=== PATIENT | male | born 1955 | race Caucasian/White ===

== ENCOUNTER 2020-01-09 11:58 | Inpatient (IN) | payer MEDICARE, MEDICAID ==
--- NOTE | 2020-01-09 12:02 | EDM.PDOC ---
ED HPI GENERAL MEDICAL PROBLEM - General Chief Complaint: General Stated Complaint: seizure Time Seen by Provider: 01/09/20 11:58 Source of Information: Reports: Patient, [facility] Records, Old Records ([facility] chart/EMR) History Limitations: Reports: Altered Mental Status - History of Present Illness INITIAL COMMENTS - FREE TEXT/NARRATIVE: The patient was brought to the emergency room via ambulance with reference investigator accompaniment with saline lock placed and patient started on O2 at 2 L/m by nasal cannula secondary to some hypoxia on room air after their initial evaluation. The patient is an extremely poor historian secondary to his chronic mental deficiency from his previous head injury as below. 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 At about 10:55 AM this morning the patient experienced a grand mal seizure lasting for about 1-1/2 minutes with one additional seizure thereafter and some postictal sedation, which did persist at time of arrival of the paramedics, however has improved at time of arrival to the emergency room. No other treatment or medications by either the nursing staff at the [facility] or the paramedics prior to arrival. No apparent recent fall, injury, anginal complaints, recent fever, cough, or other known recent illnesses. Limited history obtained from the [facility]. Onset: Today, Sudden Onset Date: 01/09/20 Onset Time: 10:55 Duration: Intermittent, Resolved Prior to Arrival Location: Reports: Other (No pain) Quality: Reports: Same as Previous Episode Severity: Moderate Improves with: Reports: None Worsens with: Reports: None Context: Reports: Other (As above). Denies: Sick Contact, Trauma Associated Symptoms: Reports: Seizure, Weakness (Stable quadriplegia). Denies: Confusion, Chest Pain, Cough, Fever/Chills, Headaches, Loss of Appetite, Nausea/ Vomiting, Shortness of Breath, Syncope Treatments [employer] OFFICER: Reports: IV/IO, Oxygen - Related Data Allergies Allergy/AdvReac Type Severity Reaction Status Date / Time No Known Allergies Allergy Verified 01/09/20 12:03 Home Meds: Home Meds Chlorhexidine Gluconate [Peridex] 15 ml MM BID 02/19/18 [History] Folic Acid 400 mcg PO DAILY 02/19/18 [History] Multivit with Calcium,Iron,Min [Essential Daily] 1 tab PO DAILY 02/19/18 [ History] Sennosides/Docusate Sodium [Senna Plus Tablet] 1 tab PO BID 02/19/18 [History] Simvastatin [Zocor] 40 mg PO BEDTIME 02/19/18 [History] Tolterodine Tartrate [Detrol LA] 4 mg PO DAILY 02/19/18 [History] bisacodyL [Dulcolax] 10 mg RC Q72H 02/19/18 [History] carBAMazepine [Tegretol] 400 mg PO BID 02/19/18 [History] polyethylene glycoL 3350 [MiraLAX] 17 gm PO Q48H 02/19/18 [History] Acetaminophen [Tylenol] 650 mg PO Q4H PRN 01/09/20 [History] Psyllium Husk [Metamucil] 0.4 gm PO TID 01/09/20 [History] Past Medical History Cardiovascular History: Reports: Arrhythmia, High Cholesterol, Other (See Below) . Denies: CAD, [place] Other Cardiovascular History: Mixed hyperlipidemia. Incomplete right bundle branch block. Respiratory History: Reports: Bronchitis, Recurrent, COPD, Pneumonia, Recurrent , Pulmonary Fibrosis, Other (See Below) Other Respiratory History: Aspiration pneumoniarecurrent? Gastrointestinal History: Reports: Chronic Constipation, Other (See Below) Other Gastrointestinal History: Dysphagia secondary to head injury Genitourinary History: Reports: Retention, Urinary, Urinary Incontinence Musculoskeletal History: Reports: Arthritis, Osteoarthritis Neurological History: Reports: Head Trauma, Seizure, Other (See Below) Other Neuro History: History of head injury associated with secondary grand mal / complex partial seizure disorder, frontal lobe encephalomalacia, mild hydrocephalus and cerebral atrophy by CT scan with chronic mental deficits and hyperplasia. C-spine injury. Endocrine/Metabolic History: Reports: Other (See Below) Other Endocrine/Metabolic History: Hyperglycemia. - Past Imaging History Past Imaging History: Reports: CAT Scan (CT scan of the head on 02/19/18, 09/2015 and 11/17/04.) Social & Family History - Family History Family Medical History: Unobtainable - Living Situation & Occupation Living situation: Reports: Extended Care Facility ED ROS GENERAL - Review of Systems Review Of Systems: Comprehensive ROS is negative, except as noted in HPI. ED EXAM, GENERAL - Physical Exam Exam: See Below Exam Limited By: Altered Mental Status General Appearance: Alert, WD/WN, No Apparent Distress, Other (Resolved/ improved postictal sedation on arrival) Eye Exam: Bilateral Eye: EOMI, Normal Fundi, Normal Inspection (No nystagmus), PERRL Ears: Normal External Exam, Normal Canal (Moderate cerumen in the EACs right greater than left), Hearing Grossly Normal, Normal TMs Nose: Normal Inspection, Normal Mucosa, No Blood Throat/Mouth: Normal Inspection, Normal Lips, Normal Teeth (Multiple missing teeth), Normal Gums, Normal Oropharynx, Normal Voice, No Airway Compromise. No : Dysphagia Head: Atraumatic, Normocephalic. No: Facial Swelling, Facial Tenderness, Sinus Tenderness Neck: Normal Inspection, Supple, Non-Tender, Full Range of Motion. No: Carotid Bruit, Lymphadenopathy (L), Lymphadenopathy (R), Thyromegaly Respiratory/Chest: No Respiratory Distress, No Accessory Muscle Use, Chest Non- Tender, Rales (Mild diffuse bilateral). No: Rhonchi, Wheezing, Pleural Rub, Retractions Cardiovascular: Normal Peripheral Pulses, No Edema, No Gallop, No JVD, No Rub, Tachycardia (Regular rhythm), Systolic Murmur (1/6 SHNEG of the aortic and mitral valves). No: Gallop/S3, Gallop/S4, Friction Rub Peripheral Pulses: 2+: Radial (L), Radial (R), Dorsalis Pedis (L), Dorsalis Pedis (R) GI/Abdominal: Normal Bowel Sounds, Soft, Non-Tender, No Organomegaly, No Distention, No Abnormal Bruit, No Mass, Pelvis Stable (Male) Exam: Deferred Rectal (Males) Exam: Deferred Back Exam: Normal Inspection, Full Range of Motion. No: CVA Tenderness (L), CVA Tenderness (R), Muscle Spasm Extremities: Non-Tender, No Pedal Edema, Normal Capillary Refill, Limited Range of Motion (Secondary to quadriplegia). No: Bettie's Sign Neurological: Alert, Sensory/Motor Deficit (Stable quadriplegia with left sided Babinski's). No: Oriented (Return to baseline mental status with patient mostly nonverbal) Psychiatric: Normal Affect, Normal Mood Skin Exam: No: Diaphoretic, Ecchymosis, Petechiae, Wound/Incision Lymphatic: No Adenopathy EKG INTERPRETATION EKG Date: 01/09/20 Time: 12:19 Rhythm: Other (Sinus tachycardia) Rate (Beats/Min): 117 [place]: Normal P-Wave: Present (Mild diffuse biphasic P waves with pulmonary hypertension by EKG) QRS: Wide (0.10 seconds representing an incomplete right bundle branch block) ST-T: Other (T-wave inversion in leads 3 and aVF with nonspecific ST changes in lead 2 and 6 possible inferior wall ischemia) QT: Normal VA/PQ Interval: 0.13 seconds short VA interval Comparison: NA - No Prior EKG (Stable inferior wall cardiac ischemia since last EKG on 06/15/13) EKG Interpretation Comments: 1. Inferior wall cardiac ischemia-? Stable 2. Sinus tachycardia 3. Short VA interval 4. Incomplete right bundle branch block Course - Vital Signs Last Recorded V/S: Last Vital Signs Temp 36.4 C 01/09/20 11:59 Pulse 115 H 01/09/20 12:36 Resp 18 01/09/20 14:00 BP 125/72 01/09/20 14:00 Pulse Ox 98 01/09/20 14:00 Vital Signs - 24 hr 01/09/20 01/09/20 01/09/20 11:59 12:00 12:30 Temperature [ 36.4 C Oral] Pulse, Peripheral Pulse, 127 H Peripheral [ Right Pulse Oximetry] Respiratory 20 Rate Blood Pressure Blood Pressure 137/71 119/66 [Right Upper Arm] O2 Sat by Pulse 87 L 93 L Oximetry O2 Sat by Pulse 96 Oximetry [ Nasal Cannula] 01/09/20 01/09/20 01/09/20 12:36 12:45 13:00 Temperature [ Oral] Pulse, 115 H Peripheral Pulse, Peripheral [ Right Pulse Oximetry] Respiratory 20 12 Rate Blood Pressure 119/66 Blood Pressure 120/69 114/67 [Right Upper Arm] O2 Sat by Pulse 96 96 Oximetry O2 Sat by Pulse Oximetry [ Nasal Cannula] 01/09/20 01/09/20 01/09/20 13:15 13:30 13:45 Temperature [ Oral] Pulse, Peripheral Pulse, Peripheral [ Right Pulse Oximetry] Respiratory 19 18 18 Rate Blood Pressure Blood Pressure 127/68 117/69 121/72 [Right Upper Arm] O2 Sat by Pulse 97 96 98 Oximetry O2 Sat by Pulse Oximetry [ Nasal Cannula] 01/09/20 14:00 Temperature [ Oral] Pulse, Peripheral Pulse, Peripheral [ Right Pulse Oximetry] Respiratory 18 Rate Blood Pressure Blood Pressure 125/72 [Right Upper Arm] O2 Sat by Pulse 98 Oximetry O2 Sat by Pulse Oximetry [ Nasal Cannula] - Orders/Labs/Meds Orders: Active Orders 24 hr Category Date Time Status Cardiac Monitoring [RC] . DIRECTED Care 01/09/20 12:05 Active EKG Documentation Completion [RC] ASDIRECTED Care 01/09/20 12:05 Active Oxygen Therapy, ED [RC] CONTINUOUS Care 01/09/20 12:05 Active Peripheral IV Care [RC] . DIRECTED Care 01/09/20 12:05 Active Pulse Oximetry [RC] CONTINUOUS Care 01/09/20 12:05 Active Up With Assistance [RC] PFP Care 01/09/20 12:05 Active Vital Signs [RC] PFP Care 01/09/20 12:05 Active Nothing per Oral Now Diet [DIET] Diet 01/09/20 Breakfast Active Chest 1V Frontal [CR] Stat Exams 01/09/20 12:05 Taken CARBAMAZEPINE [REF] Stat Lab 01/09/20 12:35 Received Sodium Chloride 0.9% [Saline Flush] Med 01/09/20 12:05 Active 10 ml FLUSH ASDIRECTED PRN Obtain Past Medical Record [OM.PC] Urgent Oth 01/09/20 12:05 Active Peripheral IV Insertion Adult [OM.PC] Stat Oth 01/09/20 12:05 Ordered Resuscitation Status Stat Resus Stat 01/09/20 12:05 Ordered Medication Orders Sodium Chloride (Saline Flush) 10 ml FLUSH ASDIRECTED PRN PRN Reason: Keep Vein Open Last Admin: 01/09/20 12:46 Dose: 10 ml Admin: 01/09/20 12:37 Dose: 10 ml Labs: Laboratory Tests 01/09/20 01/09/20 01/09/20 Range/Units 12:30 12:35 12:35 WBC 11.7 H (4.0-10.2) K/uL RBC 4.30 L (4.33-5.41) M/uL Hgb 13.6 (13.1-16.8) g/dL Hct 42.2 (39.0-49.0) % MCV 98.1 H (84.0-98.0) fL MCH 31.6 (28.2-33.3) pg MCHC 32.2 (31.7-36.0) g/dL RDW 12.9 (11.2-14.1) % Plt Count 273 (150-350) K/uL Neut % (Auto) 77.0 (45.0-80.0) % Lymph % (Auto) 10.6 (10.0-50.0) % [place] % (Auto) 11.8 (2.0-14.0) % Eos % (Auto) 0.4 (0.0-5.0) % Baso % (Auto) 0.2 (0.0-2.0) % Neut # (Auto) 9.03 H (1.40-7.00) K/uL Lymph # (Auto) 1.25 (0.50-3.50) K/uL [place] # (Auto) 1.39 H (0.00-1.00) K/uL Eos # (Auto) 0.05 (0.00-0.50) K/uL Baso # (Auto) 0.02 (0.00-0.20) K/uL PT 9.3 L (9.5-12.0) SEC INR 0.9 APTT 24.4 L (24.5-32.8) SEC D-Dimer, Quantitative 349 (0-400) ng/mL Sodium (136-145) mmol/L Potassium (3.5-5.1) mmol/L Chloride (98-107) mmol/L Carbon Dioxide (21.0-32.0) mmol/L BUN (7-18) mg/dL Creatinine (0.51-1.17) mg/dL Est Cr Clr Drug Dosing mL/min Estimated GFR (MDRD) mL/min Glucose (74-106) mg/dL Lactic Acid (0.4-2.0) mmol/L Uric Acid (2.6-7.2) mg/dL Calcium (8.5-10.1) mg/dL Magnesium (1.8-2.4) mg/dL Total Bilirubin (0.2-1.0) mg/dL AST (15-37) U/L ALT (12-78) U/L Alkaline Phosphatase (46-116) IU/L Creatine Kinase (26-308) U/L Creatine Kinase Index (0.0-2.5) % CK-MB (CK-2) (0.00-3.60) ng/mL Troponin I (0.000-0.056) ng/mL NT-Pro-B Natriuret Pep (0-125) pg/mL Total Protein (6.4-8.2) g/dL Albumin (3.4-5.0) g/dL TSH, Ultra Sensitive (0.358-3.740) mIU/mL 01/09/20 01/09/20 Range/Units 12:35 12:35 WBC (4.0-10.2) K/uL RBC (4.33-5.41) M/uL Hgb (13.1-16.8) g/dL Hct (39.0-49.0) % MCV (84.0-98.0) fL MCH (28.2-33.3) pg MCHC (31.7-36.0) g/dL RDW (11.2-14.1) % Plt Count (150-350) K/uL Neut % (Auto) (45.0-80.0) % Lymph % (Auto) (10.0-50.0) % [place] % (Auto) (2.0-14.0) % Eos % (Auto) (0.0-5.0) % Baso % (Auto) (0.0-2.0) % Neut # (Auto) (1.40-7.00) K/uL Lymph # (Auto) (0.50-3.50) K/uL [place] # (Auto) (0.00-1.00) K/uL Eos # (Auto) (0.00-0.50) K/uL Baso # (Auto) (0.00-0.20) K/uL PT (9.5-12.0) SEC INR APTT (24.5-32.8) SEC D-Dimer, Quantitative (0-400) ng/mL Sodium 148 H (136-145) mmol/L Potassium 3.9 (3.5-5.1) mmol/L Chloride 109 H (98-107) mmol/L Carbon Dioxide 26.5 (21.0-32.0) mmol/L BUN 11 (7-18) mg/dL Creatinine 0.72 (0.51-1.17) mg/dL Est Cr Clr Drug Dosing 93.53 mL/min Estimated GFR (MDRD) > 60 mL/min Glucose 118 H (74-106) mg/dL Lactic Acid 7.8 H (0.4-2.0) mmol/L Uric Acid 9.2 H (2.6-7.2) mg/dL Calcium 9.5 (8.5-10.1) mg/dL Magnesium 2.3 (1.8-2.4) mg/dL Total Bilirubin 0.2 (0.2-1.0) mg/dL AST 15 (15-37) U/L ALT 25 (12-78) U/L Alkaline Phosphatase 127 H (46-116) IU/L Creatine Kinase 286 (26-308) U/L Creatine Kinase Index 0.5 (0.0-2.5) % CK-MB (CK-2) 1.30 (0.00-3.60) ng/mL Troponin I 0.012 (0.000-0.056) ng/mL NT-Pro-B Natriuret Pep 37 (0-125) pg/mL Total Protein 7.8 (6.4-8.2) g/dL Albumin 3.6 (3.4-5.0) g/dL TSH, Ultra Sensitive 2.958 (0.358-3.740) mIU/mL Meds: Medications Generic Name Dose Route Start Last Admin Trade Name Freq PRN Reason Stop Dose Admin Sodium Chloride 10 ml 01/09/20 12:05 01/09/20 12:46 Saline Flush FLUSH 10 ml ASDIRECTED PRN Administration Keep Vein Open Discontinued Medications Generic Name Dose Route Start Last Admin Trade Name Freq PRN Reason Stop Dose Admin Diazepam 2.5 mg 01/09/20 12:40 01/09/20 12:45 Valium IVPUSH 01/09/20 12:41 2.5 mg ONETIME ONE Administration Ceftriaxone Sodium 1 gm/ 100 mls @ 200 mls/hr 01/09/20 13:12 01/09/20 13:36 Sodium Chloride IV 01/09/20 13:41 200 mls/hr ONETIME ONE Administration Metronidazole 500 mg/ Premix 100 mls @ 100 mls/hr 01/09/20 13:13 IV 01/09/20 14:12 ONETIME ONE Metoprolol Tartrate 2.5 mg 01/09/20 12:05 01/09/20 12:36 Lopressor IVPUSH 01/09/20 12:06 2.5 mg ONETIME ONE Administration - Radiology Interpretation Free Text/Narrative:: classroom monitor shows sinus tachycardia with heart rates in the 110s to 120s with no ectopy or arrhythmia. Improvement to normal sinus rhythm in the 80-90s prior to admission. Chest x-ray, portable, shows moderate cardiomegaly with moderate bilateral diffuse pulmonary infiltrates consistent with possible pneumonia with additional possible centralized CHF component. No pneumothorax, etc. Departure - Departure Time of Disposition: 14:15 Disposition: Admitted As Inpatient 66 Condition: Fair Clinical Impression: Seizure disorder, Hyperlipidemia, Incomplete right bundle branch block, Quadriplegia, Osteoarthritis, Lactic acid increased, Pneumonia, Hyperuricemia, COPD (chronic obstructive pulmonary disease), Cardiac murmur, Shortened VA interval - Discharge Information *PRESCRIPTION DRUG MONITORING PROGRAM REVIEWED*: Not Applicable *COPY OF PRESCRIPTION DRUG MONITORING REPORT IN PATIENT ARNOLDO: Not Applicable Referrals: Vero Gonzalez, [employer] SEGMENT LEADER [Primary Care Provider] - Forms: ED Department Discharge Care Plan Goals: See plan. Sepsis Event Note (ED) - Focused Exam Vital Signs: Vital Signs Temp Pulse Pulse Resp BP BP Pulse Ox 01/09/20 14:00 18 125/72 98 01/09/20 13:45 18 121/72 98 01/09/20 13:30 18 117/69 96 01/09/20 13:15 19 127/68 97 01/09/20 13:00 12 114/67 96 01/09/20 12:45 20 120/69 96 01/09/20 12:36 115 H 119/66 01/09/20 12:30 20 119/66 93 L 01/09/20 12:00 01/09/20 11:59 36.4 C 127 H 137/71 87 L Pulse Ox 01/09/20 14:00 01/09/20 13:45 01/09/20 13:30 01/09/20 13:15 01/09/20 13:00 01/09/20 12:45 01/09/20 12:36 01/09/20 12:30 01/09/20 12:00 96 01/09/20 11:59 - Problem List & Annotations (1) Seizure disorder SNOMED Code(s): 156840021 Code(s): G40.909 - EPILEPSY, UNSP, NOT INTRACTABLE, WITHOUT STATUS EPILEPTICUS Status: Chronic Priority: High Current Visit: Yes Onset Date : 01/09/20 Annotation/Comment:: Note the patient has not had a seizure for quite some time. Tegretol levels were drawn with results pending patient was given 2.5 mg of diazepam IV for patient discomfort and as seizure prophylaxis. Seizure possibly elicited secondary to current pneumonia and hypoxia. Observe for now with no further adjustment of his current Tegretol etc. medications at this time. IV diltiazem depending on his clinical course. (2) COPD (chronic obstructive pulmonary disease) SNOMED Code(s): 58629140 Code(s): J44.9 - CHRONIC OBSTRUCTIVE PULMONARY DISEASE, UNSPECIFIED Status : Chronic Priority: High Current Visit: Yes Onset Date: ~01/09/20 Annotation/Comment:: Note history of mild COPD and pulmonary fibrosis by previous chest x-rays with probable bilateral aspiration pneumonia at this time. No significant lactic acid elevation as above, however patient is afebrile with only mild leukocytosis. Attempt to obtain sputum culture. Blood cultures were not obtained secondary to initial suspicions of possible CHF rather than pneumonia with the patient being an extremely difficult blood draw. No direct clinical evidence of sepsis with IV Rocephin and IV Flagyl initiated in the emergency room secondary to significant lactic acid elevation. Initiate standard sepsis protocol. Patient will be admitted to inpatient care with continuation of antibiotic therapy as above. No nebulizer treatments for now secondary to current COVID-19 pandemia, although the patient did have a negative COVID-19 Evaluation in the [facility] last week. No D-dimer elevation , etc. Qualifiers: COPD type: COPD with acute lower respiratory infection Qualified Code(s): J44.0 - Chronic obstructive pulmonary disease with (acute) lower respiratory infection (3) Pneumonia SNOMED Code(s): 911077817 Code(s): J18.9 - PNEUMONIA, UNSPECIFIED ORGANISM Status: Acute Priority: High Current Visit: Yes Onset Date: ~01/09/20 Annotation/Comment:: As above Qualifiers: Pneumonia type: aspiration pneumonia Aspiration pneumonia type: unspecified Laterality: bilateral Lung location: unspecified part of lung Qualified Code(s): J69.0 - Pneumonitis due to inhalation of food and vomit (4) Lactic acid increased SNOMED Code(s): 25198141 Code(s): E87.2 - ACIDOSIS Status: Acute Priority: High Current Visit: Yes Onset Date: 01/09/20 Annotation/Comment:: As above. Note IV bolus of lactated Ringer's was delayed initially secondary however initial suspicion of possible CHF. (5) Hyperlipidemia SNOMED Code(s): 99827222 Code(s): E78.5 - HYPERLIPIDEMIA, UNSPECIFIED Status: Chronic Priority: Medium Current Visit: Yes Annotation/Comment:: Currently under therapy. Lipid panel in the a.m. Qualifiers: Hyperlipidemia type: mixed hyperlipidemia Qualified Code(s): E78.2 - Mixed hyperlipidemia (6) Hyperuricemia SNOMED Code(s): 24803265 Code(s): E79.0 - HYPERURICEMIA W/O SIGNS OF INFLAM ARTHRIT AND TOPHACEOUS DIS Status: Acute Priority: Medium Current Visit: Yes Onset Date: Annotation/Comment:: Observe for now with no gout-type symptoms. (7) Incomplete right bundle branch block SNOMED Code(s): 539642712 Code(s): I45.10 - UNSPECIFIED RIGHT BUNDLE-BRANCH BLOCK Status: Chronic Priority: Medium Current Visit: Yes Annotation/Comment:: No chest pain or anginal type symptoms with patient being a somewhat poor historian. EKG shows stable possible inferior wall cardiac ischemia with mild change in troponin I. Repeat cardiac enzymes as per standard rule out [place] orders. BNP is normal despite initial suspicion of possible concomitant CHF. (8) Quadriplegia SNOMED Code(s): 38473310 Code(s): G82.50 - QUADRIPLEGIA, UNSPECIFIED Status: Chronic Priority: Medium Current Visit: Yes Annotation/Comment:: Stable neurological exam and staple neurological deficits by history. (9) Cardiac murmur SNOMED Code(s): 48237531 Code(s): R01.1 - CARDIAC MURMUR, UNSPECIFIED Status: Acute Priority: Medium Current Visit: Yes Onset Date: 01/09/20 Annotation/Comment:: Observe for now. (10) Shortened VA interval SNOMED Code(s): 58902798 Code(s): R94.31 - ABNORMAL ELECTROCARDIOGRAM [ECG] [EKG] Status: Acute Priority: Medium Current Visit: Yes Onset Date: 01/09/20 Annotation/ Comment:: Observe for now. Note initial sinus tachycardia. Excellent response to low-dose IV Lopressor. No further medications for now. - Problem List Review Problem List Initiated/Reviewed/Updated: Yes - My Orders Last 24 Hours: My Active Orders 01/09/20 12:05 Cardiac Monitoring [RC] . DIRECTED EKG Documentation Completion [RC] ASDIRECTED Oxygen Therapy, ED [RC] CONTINUOUS Peripheral IV Care [RC] . DIRECTED Pulse Oximetry [RC] CONTINUOUS Up With Assistance [RC] PFP Vital Signs [RC] PFP Chest 1V Frontal [CR] Stat Sodium Chloride 0.9% [Saline Flush] 10 ml FLUSH ASDIRECTED PRN Obtain Past Medical Record [OM.PC] Urgent Peripheral IV Insertion Adult [OM.PC] Stat Resuscitation Status Stat 01/09/20 12:35 CARBAMAZEPINE [REF] Stat 01/09/20 Breakfast Nothing per Oral Now Diet [DIET] - Assessment/Plan Admission H&P: Please use this note as an admission H&P Last 24 Hours: My Active Orders 01/09/20 12:05 Cardiac Monitoring [RC] . DIRECTED EKG Documentation Completion [RC] ASDIRECTED Oxygen Therapy, ED [RC] CONTINUOUS Peripheral IV Care [RC] . DIRECTED Pulse Oximetry [RC] CONTINUOUS Up With Assistance [RC] PFP Vital Signs [RC] PFP Chest 1V Frontal [CR] Stat Sodium Chloride 0.9% [Saline Flush] 10 ml FLUSH ASDIRECTED PRN Obtain Past Medical Record [OM.PC] Urgent Peripheral IV Insertion Adult [OM.PC] Stat Resuscitation Status Stat 01/09/20 12:35 CARBAMAZEPINE [REF] Stat 01/09/20 Breakfast Nothing per Oral Now Diet [DIET] Assessment:: As above. Plan: As above. Extensive precautions were given to the patient and his sister, Carol , who are in agreement with the treatment plan. The patient will require about 3 -4 days of inpatient/acute care secondary to multiple health problems as above.
[2020-01-09] MEDS ORDERED: Metoprolol Tartrate 5 MG/5 ML SDV IVPUSH ONE (12:05)
[2020-01-09] MEDS: Sodium Chloride 0.9% 10 ML Syringe FLUSH PRN ×4 (12:37→22:15)
[2020-01-09 12:58] LABS: PTT,PARTIAL THROMBOPLSTIN TIME 24.4 SEC (24.5-32.8)
[2020-01-09] MEDS ORDERED: cefTRIAXone 1 GM in Sodium Chloride 0.9% 100 ML IV ONE (13:12)
[2020-01-09] MEDS ORDERED: metroNIDAZOLE/Normal Saline 500 MG in Premix Bag 1 BAG IV ONE (13:13)
[2020-01-09 13:26] LABS: CHLORIDE,CL 109 mmol/L (98-107); SODIUM,NA 148 mmol/L (136-145)
[2020-01-09] MEDS ORDERED: Acetaminophen 325 MG Tab PO PRN ×2 (15:29→16:00)
[2020-01-09] MEDS: Sodium Chloride 0.9% 10 ML Syringe FLUSH SCH (16:06)
[2020-01-09] MEDS: carBAMazepine 200 MG Tab PO SCH (17:20)
[2020-01-09] MEDS: Dextromethorphan/guaiFENesin 600-30 MG Tab.ER PO SCH (17:20)
[2020-01-09] MEDS: Chlorhexidine Gluconate 0.12% Oral Rinse 118 ML Bottle MM SCH (17:21)
[2020-01-09] MEDS ORDERED: PSYLLIUM HUSK 0.4 GM PO SCH (18:00)
[2020-01-09] MEDS: Simvastatin 20 MG Tab PO SCH (19:41)
[2020-01-09] MEDS: Enoxaparin 80 MG/0.8 ML Syringe SUBCUT SCH (19:45)
[2020-01-09] MEDS: Temazepam 15 MG Cap PO PRN (22:14)
[2020-01-09] MEDS: metroNIDAZOLE/Normal Saline 500 MG in Premix Bag 1 BAG IV SCH (22:15)
[2020-01-10] MEDS: cefTRIAXone 1 GM in Sodium Chloride 0.9% 100 ML IV SCH ×2 (00:11→12:31)
[2020-01-10] MEDS: Sodium Chloride 0.9% 10 ML Syringe FLUSH PRN ×4 (00:11→22:54)
[2020-01-10] MEDS: Sodium Chloride 0.9% 10 ML Syringe FLUSH SCH (02:31)
[2020-01-10] MEDS: metroNIDAZOLE/Normal Saline 500 MG in Premix Bag 1 BAG IV SCH ×3 (08:14→22:53)
[2020-01-10] MEDS: Psyllium Husk Powder Sugar Free 5.85 GM Packet PO SCH (08:23)
[2020-01-10] MEDS: Folic Acid 1 MG Tab PO SCH (08:24)
[2020-01-10] MEDS: Trospium 20 MG Tab PO SCH ×2 (08:24→17:24)
[2020-01-10] MEDS: carBAMazepine 200 MG Tab PO SCH ×2 (08:24→17:25)
--- NOTE | 2020-01-10 08:24 | PCM.PN ---
- General Info Date of Service: 01/10/20 Admission Dx/Problem (Free Text): 1. Seizure disorder 2. Pneumonia 3. COPD Subjective Update: Patient is a poor historian secondary to his baseline mental deficits Functional Status: Reports: Pain Controlled, Tolerating Diet, Urinating. Denies: Ambulating (Quadriplegia), New Symptoms, Incentive Spirometry (Unable to perform) Pain Score: 0 - Review of Systems General: Reports: Weakness (Stable quadriplegia). Denies: Fever, Fatigue, Malaise, Chills, Night Sweats, Appetite HEENT: Reports: No Symptoms Pulmonary: Reports: No Symptoms Cardiovascular: Reports: No Symptoms Gastrointestinal: Reports: No Symptoms, Other (No bowel movement to this point) Genitourinary: Reports: No Symptoms Musculoskeletal: Reports: No Symptoms Skin: Reports: No Symptoms. Denies: Diaphoresis, Bruising Neurological: Reports: Pre-Existing Deficit, Other (No postictal sedation). Denies: Confusion (Stable mental deficit), Seizure, Weakness (Quadriplegia) Psychiatric: Denies: Confusion (As above), Agitation, Hallucinations - Patient Data Vitals - Most Recent: Last Vital Signs Temp 36.7 C 01/10/20 00:00 Pulse 82 01/10/20 00:00 Resp 18 01/10/20 00:00 BP 109/70 01/10/20 00:00 Pulse Ox 94 L 01/10/20 00:00 Vital Signs - 24 hr 01/09/20 01/09/20 01/09/20 11:59 12:00 12:30 Temperature [ 36.4 C Oral] Temperature [ Temporal] Pulse, Peripheral Pulse, 127 H Peripheral [ Right Pulse Oximetry] Respiratory 20 Rate Blood Pressure Blood Pressure 137/71 119/66 [Right Upper Arm] O2 Sat by Pulse 87 L 93 L Oximetry O2 Sat by Pulse 96 Oximetry [ Nasal Cannula] 01/09/20 01/09/20 01/09/20 12:36 12:45 13:00 Temperature [ Oral] Temperature [ Temporal] Pulse, 115 H Peripheral Pulse, Peripheral [ Right Pulse Oximetry] Respiratory 20 12 Rate Blood Pressure 119/66 Blood Pressure 120/69 114/67 [Right Upper Arm] O2 Sat by Pulse 96 96 Oximetry O2 Sat by Pulse Oximetry [ Nasal Cannula] 01/09/20 01/09/20 01/09/20 13:15 13:30 13:45 Temperature [ Oral] Temperature [ Temporal] Pulse, Peripheral Pulse, Peripheral [ Right Pulse Oximetry] Respiratory 19 18 18 Rate Blood Pressure Blood Pressure 127/68 117/69 121/72 [Right Upper Arm] O2 Sat by Pulse 97 96 98 Oximetry O2 Sat by Pulse Oximetry [ Nasal Cannula] 01/09/20 01/09/20 01/09/20 14:00 16:00 19:38 Temperature [ Oral] Temperature [ 37.1 C 37.4 C Temporal] Pulse, Peripheral Pulse, 85 84 Peripheral [ Right Pulse Oximetry] Respiratory 18 18 18 Rate Blood Pressure Blood Pressure 125/72 114/64 108/50 L [Right Upper Arm] O2 Sat by Pulse 98 99 97 Oximetry O2 Sat by Pulse Oximetry [ Nasal Cannula] 01/10/20 00:00 Temperature [ Oral] Temperature [ 36.7 C Temporal] Pulse, Peripheral Pulse, 82 Peripheral [ Right Pulse Oximetry] Respiratory 18 Rate Blood Pressure Blood Pressure 109/70 [Right Upper Arm] O2 Sat by Pulse 94 L Oximetry O2 Sat by Pulse Oximetry [ Nasal Cannula] Weight - Most Recent: 77.337 kg I&O - Last 24 Hours: Intake & Output 01/09/20 01/10/20 01/10/20 22:59 06:59 14:59 Intake Total 200 Balance 200 Imaging Impressions - Last 24 Hours: 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 with heart rate in the 80s90s with no ectopy or arrhythmia Lab Results Last 24 Hours: Laboratory Results - last 24 hr 01/09/20 01/09/20 01/09/20 Range/Units 12:30 12:35 12:35 WBC 11.7 H (4.0-10.2) K/uL RBC 4.30 L (4.33-5.41) M/uL Hgb 13.6 (13.1-16.8) g/dL Hct 42.2 (39.0-49.0) % MCV 98.1 H (84.0-98.0) fL MCH 31.6 (28.2-33.3) pg MCHC 32.2 (31.7-36.0) g/dL RDW 12.9 (11.2-14.1) % Plt Count 273 (150-350) K/uL Neut % (Auto) 77.0 (45.0-80.0) % Lymph % (Auto) 10.6 (10.0-50.0) % [place] % (Auto) 11.8 (2.0-14.0) % Eos % (Auto) 0.4 (0.0-5.0) % Baso % (Auto) 0.2 (0.0-2.0) % Neut # (Auto) 9.03 H (1.40-7.00) K/uL Lymph # (Auto) 1.25 (0.50-3.50) K/uL [place] # (Auto) 1.39 H (0.00-1.00) K/uL Eos # (Auto) 0.05 (0.00-0.50) K/uL Baso # (Auto) 0.02 (0.00-0.20) K/uL PT 9.3 L (9.5-12.0) SEC INR 0.9 APTT 24.4 L (24.5-32.8) SEC D-Dimer, Quantitative 349 (0-400) ng/mL Sodium (136-145) mmol/L Potassium (3.5-5.1) mmol/L Chloride (98-107) mmol/L Carbon Dioxide (21.0-32.0) mmol/L BUN (7-18) mg/dL Creatinine (0.51-1.17) mg/dL Est Cr Clr Drug Dosing mL/min Estimated GFR (MDRD) mL/min Glucose (74-106) mg/dL Lactic Acid (0.4-2.0) mmol/L Uric Acid (2.6-7.2) mg/dL Calcium (8.5-10.1) mg/dL Magnesium (1.8-2.4) mg/dL Total Bilirubin (0.2-1.0) mg/dL AST (15-37) U/L ALT (12-78) U/L Alkaline Phosphatase (46-116) IU/L Creatine Kinase (26-308) U/L Creatine Kinase Index (0.0-2.5) % CK-MB (CK-2) (0.00-3.60) ng/mL Troponin I (0.000-0.056) ng/mL NT-Pro-B Natriuret Pep (0-125) pg/mL Total Protein (6.4-8.2) g/dL Albumin (3.4-5.0) g/dL TSH, Ultra Sensitive (0.358-3.740) mIU/mL 01/09/20 01/09/20 01/09/20 Range/Units 12:35 12:35 17:35 WBC (4.0-10.2) K/uL RBC (4.33-5.41) M/uL Hgb (13.1-16.8) g/dL Hct (39.0-49.0) % MCV (84.0-98.0) fL MCH (28.2-33.3) pg MCHC (31.7-36.0) g/dL RDW (11.2-14.1) % Plt Count (150-350) K/uL Neut % (Auto) (45.0-80.0) % Lymph % (Auto) (10.0-50.0) % [place] % (Auto) (2.0-14.0) % Eos % (Auto) (0.0-5.0) % Baso % (Auto) (0.0-2.0) % Neut # (Auto) (1.40-7.00) K/uL Lymph # (Auto) (0.50-3.50) K/uL [place] # (Auto) (0.00-1.00) K/uL Eos # (Auto) (0.00-0.50) K/uL Baso # (Auto) (0.00-0.20) K/uL PT (9.5-12.0) SEC INR APTT (24.5-32.8) SEC D-Dimer, Quantitative (0-400) ng/mL Sodium 148 H (136-145) mmol/L Potassium 3.9 (3.5-5.1) mmol/L Chloride 109 H (98-107) mmol/L Carbon Dioxide 26.5 (21.0-32.0) mmol/L BUN 11 (7-18) mg/dL Creatinine 0.72 (0.51-1.17) mg/dL Est Cr Clr Drug Dosing 93.53 mL/min Estimated GFR (MDRD) > 60 mL/min Glucose 118 H (74-106) mg/dL Lactic Acid 7.8 H 1.6 (0.4-2.0) mmol/L Uric Acid 9.2 H (2.6-7.2) mg/dL Calcium 9.5 (8.5-10.1) mg/dL Magnesium 2.3 (1.8-2.4) mg/dL Total Bilirubin 0.2 (0.2-1.0) mg/dL AST 15 (15-37) U/L ALT 25 (12-78) U/L Alkaline Phosphatase 127 H (46-116) IU/L Creatine Kinase 286 (26-308) U/L Creatine Kinase Index 0.5 (0.0-2.5) % CK-MB (CK-2) 1.30 (0.00-3.60) ng/mL Troponin I 0.012 (0.000-0.056) ng/mL NT-Pro-B Natriuret Pep 37 (0-125) pg/mL Total Protein 7.8 (6.4-8.2) g/dL Albumin 3.6 (3.4-5.0) g/dL TSH, Ultra Sensitive 2.958 (0.358-3.740) mIU/mL 01/09/20 01/10/20 Range/Units 17:35 07:22 WBC 8.4 (4.0-10.2) K/uL RBC 4.09 L (4.33-5.41) M/uL Hgb 13.0 L (13.1-16.8) g/dL Hct 41.0 (39.0-49.0) % MCV 100.2 H (84.0-98.0) fL MCH 31.8 (28.2-33.3) pg MCHC 31.7 (31.7-36.0) g/dL RDW 13.0 (11.2-14.1) % Plt Count 261 (150-350) K/uL Neut % (Auto) 57.3 (45.0-80.0) % Lymph % (Auto) 30.0 (10.0-50.0) % [place] % (Auto) 11.2 (2.0-14.0) % Eos % (Auto) 1.3 (0.0-5.0) % Baso % (Auto) 0.2 (0.0-2.0) % Neut # (Auto) 4.81 (1.40-7.00) K/uL Lymph # (Auto) 2.52 (0.50-3.50) K/uL [place] # (Auto) 0.94 (0.00-1.00) K/uL Eos # (Auto) 0.11 (0.00-0.50) K/uL Baso # (Auto) 0.02 (0.00-0.20) K/uL PT (9.5-12.0) SEC INR APTT (24.5-32.8) SEC D-Dimer, Quantitative (0-400) ng/mL Sodium (136-145) mmol/L Potassium (3.5-5.1) mmol/L Chloride (98-107) mmol/L Carbon Dioxide (21.0-32.0) mmol/L BUN (7-18) mg/dL Creatinine (0.51-1.17) mg/dL Est Cr Clr Drug Dosing mL/min Estimated GFR (MDRD) mL/min Glucose (74-106) mg/dL Lactic Acid (0.4-2.0) mmol/L Uric Acid (2.6-7.2) mg/dL Calcium (8.5-10.1) mg/dL Magnesium (1.8-2.4) mg/dL Total Bilirubin (0.2-1.0) mg/dL AST (15-37) U/L ALT (12-78) U/L Alkaline Phosphatase (46-116) IU/L Creatine Kinase 284 (26-308) U/L Creatine Kinase Index 0.5 (0.0-2.5) % CK-MB (CK-2) 1.40 (0.00-3.60) ng/mL Troponin I 0.069 H* (0.000-0.056) ng/mL NT-Pro-B Natriuret Pep (0-125) pg/mL Total Protein (6.4-8.2) g/dL Albumin (3.4-5.0) g/dL TSH, Ultra Sensitive (0.358-3.740) mIU/mL Laboratory Tests 01/09/20 01/09/20 01/09/20 Range/Units 12:30 12:35 12:35 WBC 11.7 H (4.0-10.2) K/uL RBC 4.30 L (4.33-5.41) M/uL Hgb 13.6 (13.1-16.8) g/dL Hct 42.2 (39.0-49.0) % MCV 98.1 H (84.0-98.0) fL MCH 31.6 (28.2-33.3) pg MCHC 32.2 (31.7-36.0) g/dL RDW 12.9 (11.2-14.1) % Plt Count 273 (150-350) K/uL Neut % (Auto) 77.0 (45.0-80.0) % Lymph % (Auto) 10.6 (10.0-50.0) % [place] % (Auto) 11.8 (2.0-14.0) % Eos % (Auto) 0.4 (0.0-5.0) % Baso % (Auto) 0.2 (0.0-2.0) % Neut # (Auto) 9.03 H (1.40-7.00) K/uL Lymph # (Auto) 1.25 (0.50-3.50) K/uL [place] # (Auto) 1.39 H (0.00-1.00) K/uL Eos # (Auto) 0.05 (0.00-0.50) K/uL Baso # (Auto) 0.02 (0.00-0.20) K/uL PT 9.3 L (9.5-12.0) SEC INR 0.9 APTT 24.4 L (24.5-32.8) SEC D-Dimer, Quantitative 349 (0-400) ng/mL Sodium (136-145) mmol/L Potassium (3.5-5.1) mmol/L Chloride (98-107) mmol/L Carbon Dioxide (21.0-32.0) mmol/L BUN (7-18) mg/dL Creatinine (0.51-1.17) mg/dL Est Cr Clr Drug Dosing mL/min Estimated GFR (MDRD) mL/min Glucose (74-106) mg/dL Hemoglobin A1c (4.3-5.7) % Lactic Acid (0.4-2.0) mmol/L Uric Acid (2.6-7.2) mg/dL Calcium (8.5-10.1) mg/dL Magnesium (1.8-2.4) mg/dL Total Bilirubin (0.2-1.0) mg/dL AST (15-37) U/L ALT (12-78) U/L Alkaline Phosphatase (46-116) IU/L Creatine Kinase (26-308) U/L Creatine Kinase Index (0.0-2.5) % CK-MB (CK-2) (0.00-3.60) ng/mL Troponin I (0.000-0.056) ng/mL NT-Pro-B Natriuret Pep (0-125) pg/mL Total Protein (6.4-8.2) g/dL Albumin (3.4-5.0) g/dL Triglycerides (30-150) mg/dL Cholesterol (100-200) mg/dL LDL Cholesterol, Calc (0-100) mg/dL HDL Cholesterol (40-60) mg/dL TSH, Ultra Sensitive (0.358-3.740) mIU/mL 01/09/20 01/09/20 01/09/20 Range/Units 12:35 12:35 17:35 WBC (4.0-10.2) K/uL RBC (4.33-5.41) M/uL Hgb (13.1-16.8) g/dL Hct (39.0-49.0) % MCV (84.0-98.0) fL MCH (28.2-33.3) pg MCHC (31.7-36.0) g/dL RDW (11.2-14.1) % Plt Count (150-350) K/uL Neut % (Auto) (45.0-80.0) % Lymph % (Auto) (10.0-50.0) % [place] % (Auto) (2.0-14.0) % Eos % (Auto) (0.0-5.0) % Baso % (Auto) (0.0-2.0) % Neut # (Auto) (1.40-7.00) K/uL Lymph # (Auto) (0.50-3.50) K/uL [place] # (Auto) (0.00-1.00) K/uL Eos # (Auto) (0.00-0.50) K/uL Baso # (Auto) (0.00-0.20) K/uL PT (9.5-12.0) SEC INR APTT (24.5-32.8) SEC D-Dimer, Quantitative (0-400) ng/mL Sodium 148 H (136-145) mmol/L Potassium 3.9 (3.5-5.1) mmol/L Chloride 109 H (98-107) mmol/L Carbon Dioxide 26.5 (21.0-32.0) mmol/L BUN 11 (7-18) mg/dL Creatinine 0.72 (0.51-1.17) mg/dL Est Cr Clr Drug Dosing 93.53 mL/min Estimated GFR (MDRD) > 60 mL/min Glucose 118 H (74-106) mg/dL Hemoglobin A1c (4.3-5.7) % Lactic Acid 7.8 H 1.6 (0.4-2.0) mmol/L Uric Acid 9.2 H (2.6-7.2) mg/dL Calcium 9.5 (8.5-10.1) mg/dL Magnesium 2.3 (1.8-2.4) mg/dL Total Bilirubin 0.2 (0.2-1.0) mg/dL AST 15 (15-37) U/L ALT 25 (12-78) U/L Alkaline Phosphatase 127 H (46-116) IU/L Creatine Kinase 286 (26-308) U/L Creatine Kinase Index 0.5 (0.0-2.5) % CK-MB (CK-2) 1.30 (0.00-3.60) ng/mL Troponin I 0.012 (0.000-0.056) ng/mL NT-Pro-B Natriuret Pep 37 (0-125) pg/mL Total Protein 7.8 (6.4-8.2) g/dL Albumin 3.6 (3.4-5.0) g/dL Triglycerides (30-150) mg/dL Cholesterol (100-200) mg/dL LDL Cholesterol, Calc (0-100) mg/dL HDL Cholesterol (40-60) mg/dL TSH, Ultra Sensitive 2.958 (0.358-3.740) mIU/mL 01/09/20 01/10/20 01/10/20 Range/Units 17:35 07:22 07:22 WBC 8.4 (4.0-10.2) K/uL RBC 4.09 L (4.33-5.41) M/uL Hgb 13.0 L (13.1-16.8) g/dL Hct 41.0 (39.0-49.0) % MCV 100.2 H (84.0-98.0) fL MCH 31.8 (28.2-33.3) pg MCHC 31.7 (31.7-36.0) g/dL RDW 13.0 (11.2-14.1) % Plt Count 261 (150-350) K/uL Neut % (Auto) 57.3 (45.0-80.0) % Lymph % (Auto) 30.0 (10.0-50.0) % [place] % (Auto) 11.2 (2.0-14.0) % Eos % (Auto) 1.3 (0.0-5.0) % Baso % (Auto) 0.2 (0.0-2.0) % Neut # (Auto) 4.81 (1.40-7.00) K/uL Lymph # (Auto) 2.52 (0.50-3.50) K/uL [place] # (Auto) 0.94 (0.00-1.00) K/uL Eos # (Auto) 0.11 (0.00-0.50) K/uL Baso # (Auto) 0.02 (0.00-0.20) K/uL PT (9.5-12.0) SEC INR APTT (24.5-32.8) SEC D-Dimer, Quantitative (0-400) ng/mL Sodium 147 H (136-145) mmol/L Potassium 3.7 (3.5-5.1) mmol/L Chloride 110 H (98-107) mmol/L Carbon Dioxide 29.8 (21.0-32.0) mmol/L BUN 10 (7-18) mg/dL Creatinine 0.64 (0.51-1.17) mg/dL Est Cr Clr Drug Dosing 105.23 mL/min Estimated GFR (MDRD) > 60 mL/min Glucose 109 H (74-106) mg/dL Hemoglobin A1c (4.3-5.7) % Lactic Acid (0.4-2.0) mmol/L Uric Acid (2.6-7.2) mg/dL Calcium 8.6 (8.5-10.1) mg/dL Magnesium (1.8-2.4) mg/dL Total Bilirubin 0.2 (0.2-1.0) mg/dL AST 15 (15-37) U/L ALT 25 (12-78) U/L Alkaline Phosphatase 109 (46-116) IU/L Creatine Kinase 284 211 (26-308) U/L Creatine Kinase Index 0.5 0.4 (0.0-2.5) % CK-MB (CK-2) 1.40 0.90 (0.00-3.60) ng/mL Troponin I 0.069 H* 0.003 (0.000-0.056) ng/mL NT-Pro-B Natriuret Pep 101 (0-125) pg/mL Total Protein 7.0 (6.4-8.2) g/dL Albumin 3.1 L (3.4-5.0) g/dL Triglycerides (30-150) mg/dL Cholesterol (100-200) mg/dL LDL Cholesterol, Calc (0-100) mg/dL HDL Cholesterol (40-60) mg/dL TSH, Ultra Sensitive (0.358-3.740) mIU/mL 01/10/20 01/10/20 01/10/20 Range/Units 07:22 07:22 07:22 WBC (4.0-10.2) K/uL RBC (4.33-5.41) M/uL Hgb (13.1-16.8) g/dL Hct (39.0-49.0) % MCV (84.0-98.0) fL MCH (28.2-33.3) pg MCHC (31.7-36.0) g/dL RDW (11.2-14.1) % Plt Count (150-350) K/uL Neut % (Auto) (45.0-80.0) % Lymph % (Auto) (10.0-50.0) % [place] % (Auto) (2.0-14.0) % Eos % (Auto) (0.0-5.0) % Baso % (Auto) (0.0-2.0) % Neut # (Auto) (1.40-7.00) K/uL Lymph # (Auto) (0.50-3.50) K/uL [place] # (Auto) (0.00-1.00) K/uL Eos # (Auto) (0.00-0.50) K/uL Baso # (Auto) (0.00-0.20) K/uL PT (9.5-12.0) SEC INR APTT (24.5-32.8) SEC D-Dimer, Quantitative (0-400) ng/mL Sodium (136-145) mmol/L Potassium (3.5-5.1) mmol/L Chloride (98-107) mmol/L Carbon Dioxide (21.0-32.0) mmol/L BUN (7-18) mg/dL Creatinine (0.51-1.17) mg/dL Est Cr Clr Drug Dosing mL/min Estimated GFR (MDRD) mL/min Glucose (74-106) mg/dL Hemoglobin A1c 5.8 H (4.3-5.7) % Lactic Acid 1.8 (0.4-2.0) mmol/L Uric Acid (2.6-7.2) mg/dL Calcium (8.5-10.1) mg/dL Magnesium (1.8-2.4) mg/dL Total Bilirubin (0.2-1.0) mg/dL AST (15-37) U/L ALT (12-78) U/L Alkaline Phosphatase (46-116) IU/L Creatine Kinase (26-308) U/L Creatine Kinase Index (0.0-2.5) % CK-MB (CK-2) (0.00-3.60) ng/mL Troponin I (0.000-0.056) ng/mL NT-Pro-B Natriuret Pep (0-125) pg/mL Total Protein (6.4-8.2) g/dL Albumin (3.4-5.0) g/dL Triglycerides 233 H (30-150) mg/dL Cholesterol 147 (100-200) mg/dL LDL Cholesterol, Calc 57 (0-100) mg/dL HDL Cholesterol 43 (40-60) mg/dL TSH, Ultra Sensitive (0.358-3.740) mIU/mL Bob Results Last 24 Hours: MRSA pending Med Orders - Current: Current Medications Acetaminophen (Tylenol) 650 mg PO Q4H PRN PRN Reason: Pain/Fever Bisacodyl (Dulcolax) 10 mg RECTAL Q72H [facility] Carbamazepine (Tegretol Tab) 400 mg PO BID [facility] Last Admin: 01/09/20 17:20 Dose: 400 mg Documented by: Chlorhexidine Gluconate (Chlorhexidine Gluconate 0.12% Rinse) 15 ml MM BID [facility] Last Admin: 01/09/20 17:21 Dose: 15 ml Documented by: Diazepam (Valium) 2.5 mg IVPUSH Q6H PRN PRN Reason: Seizures Enoxaparin Sodium (Lovenox) 80 mg SUBCUT BEDTIME [facility] Last Admin: 01/09/20 19:45 Dose: 80 mg Documented by: Folic Acid (Folic Acid) 0.5 mg PO DAILY [facility] Guaifenesin/Dextromethorphan (Mucinex Dm Er 600-30 Mg) 1 tab PO BID [facility] Last Admin: 01/09/20 17:20 Dose: 1 tab Documented by: Ceftriaxone Sodium 1 gm/ (Sodium Chloride) 100 mls @ 200 mls/hr IV Q12H [facility] Last Admin: 01/10/20 00:11 Dose: 200 mls/hr Documented by: Metronidazole 500 mg/ Premix 100 mls @ 100 mls/hr IV Q8H [facility] Last Admin: 01/10/20 08:14 Dose: Not Given Documented by: Multivitamins/Minerals/Vitamin C (Tab-A-Rosalva) 1 tab PO DAILY [facility] Polyethylene Glycol (Miralax) 17 gm PO Q48H [facility] Psyllium Husk (Metamucil Sugar Free) 1 pkt PO DAILY [facility] Senna/Docusate Sodium (Senna Plus) 1 tab PO BID [facility] Last Admin: 01/09/20 17:20 Dose: 1 tab Documented by: Simvastatin (Zocor) 40 mg PO BEDTIME [facility] Last Admin: 01/09/20 19:41 Dose: 40 mg Documented by: Sodium Chloride (Saline Flush) 10 ml FLUSH ASDIRECTED PRN PRN Reason: Keep Vein Open Last Admin: 01/10/20 00:11 Dose: 10 ml Documented by: Sodium Chloride (Saline Flush) 10 ml FLUSH Q12H [facility] Last Admin: 01/10/20 02:31 Dose: Not Given Documented by: Temazepam (Restoril) 15 mg PO BEDTIME PRN PRN Reason: Insomnia Last Admin: 01/09/20 22:14 Dose: 15 mg Documented by: Trospium (Sanctura) 20 mg PO BID [facility] Discontinued Medications Acetaminophen (Tylenol) 650 mg PO Q4H PRN PRN Reason: Pain/Fever Diazepam (Valium) 2.5 mg IVPUSH ONETIME ONE Stop: 01/09/20 12:41 Last Admin: 01/09/20 12:45 Dose: 2.5 mg Documented by: Ceftriaxone Sodium 1 gm/ (Sodium Chloride) 100 mls @ 200 mls/hr IV ONETIME ONE Stop: 01/09/20 13:41 Last Admin: 01/09/20 13:36 Dose: 200 mls/hr Documented by: Metronidazole 500 mg/ Premix 100 mls @ 100 mls/hr IV ONETIME ONE Stop: 01/09/20 14:12 Last Admin: 01/09/20 14:32 Dose: 100 mls/hr Documented by: Metoprolol Tartrate (Lopressor) 2.5 mg IVPUSH ONETIME ONE Stop: 01/09/20 12:06 Last Admin: 01/09/20 12:36 Dose: 2.5 mg Documented by: Non-Formulary Medication (Psyllium Husk [Metamucil]) 0.4 gm PO TID [facility] - Exam Quality Assessment: Supplemental Oxygen, DVT Prophylaxis (Lovenox). No: Urine Catheter, Skin Breakdown, Restraints General: Alert, Cooperative, No Acute Distress. No: Oriented (Stable baseline mental deficit) HEENT: Pupils Equal, Pupils Reactive, EOMI, Mucous Membr. Moist/[place]. No: Scleral Icterus Neck: Supple, Trachea Midline, No JVD, No Thyromegaly, +2 Carotid Pulse wo Bruit. No: Lymphadenopathy Lungs: Normal Respiratory Effort, Rales (Significantly improved with only mild bilateral basilar rales). No: Rhonchi, Rub, Wheezing Cardiovascular: Regular Rate, Regular Rhythm, Murmurs (Mild 1/6 SHENG of the aortic and mitral valves). No: Gallops, Rubs GI/Abdominal Exam: Normal Bowel Sounds, Soft, Non-Tender, No Organomegaly, No Distention, No Abnormal Bruit, No Mass. No: Guarding (Male) Exam: Deferred Back Exam: Normal Inspection, Full Range of Motion. No: CVA Tenderness (L), CVA Tenderness (R), Muscle Spasm Extremities: Normal Inspection, Non-Tender, No Pedal Edema, Normal Capillary Refill. No: Normal Range of Motion (Quadriplegia), Bettie's Sign Peripheral Pulses: 2+: Radial (L), Radial (R), Dorsalis Pedis (L), Dorsalis Pedis (R) Skin: Warm, Dry, Intact. No: Ecchymosis Neurological: No New Focal Deficit, Other (Stable mental status and quadriplegia as above) Psy/Mental Status: Alert, Normal Affect, Normal Mood. No: Agitated, Hallucinations, Withdrawal Symptoms EKG INTERPRETATION EKG Date: 01/10/20 Time: 07:28 Rhythm: NSR Rate (Beats/Min): 88 [place]: Normal (Neutral) P-Wave: Present (Mild diffuse biphasic P waves) QRS: RBBB (Neuro 0.10 seconds representing a stable incomplete right bundle branch block versus repolarization changes) ST-T: Normal (Resolution of previous T-wave inversions in leads 3 and aVF) QT: Normal [place]/PQ Interval: O.14 seconds representing an improved short [place] interval with no delta waves noted. Pulmonary hypertension by EKG Comparison: Change From Previous EKG (As above since 01/09/20) EKG Interpretation Comments: 1. No acute ischemic changes? Previous inferior ischemia 2. Short [place] interval 3. Incomplete right bundle branch block/repolarization changes Sepsis Event Note - Evaluation Sepsis Screening Result: No Definite Risk - Focused Exam Vital Signs: Vital Signs Temp Pulse Resp BP Pulse Ox 01/10/20 00:00 36.7 C 82 18 109/70 94 L Date Exam was Performed: 01/10/20 Time Exam was Performed: 13:08 - Problem List & Annotations (1) Seizure disorder SNOMED Code(s): 350792013 Code(s): G40.909 - EPILEPSY, UNSP, NOT INTRACTABLE, WITHOUT STATUS EPILEPTICUS Status: Chronic Priority: High Current Visit: Yes Onset Date: 01/09/20 Annotation/Comment:: No return seizure activity during this hospitalization. Note the patient had previously not had a seizure for quite some time with returned grand mal seizures 2 prior to initial evaluation in our emergency room. Tegretol levels were drawn with results still pending. The patient was given 2.5 mg of diazepam IV in the emergency room for patient discomfort and as seizure prophylaxis with no further doses needed during this hospitalization . Seizure possibly elicited secondary to current pneumonia and hypoxia. Observe for now with no further adjustment of his current Tegretol etc. medications at this time. Further IV diltiazem and/or adjustment of his medical therapy depending on his clinical course. (2) COPD (chronic obstructive pulmonary disease) SNOMED Code(s): 61436983 Code(s): J44.9 - CHRONIC OBSTRUCTIVE PULMONARY DISEASE, UNSPECIFIED Status: Chronic Priority: High Current Visit: Yes Onset Date: ~01/09/20 Qualifiers: COPD type: COPD with acute lower respiratory infection Qualified Code(s): J44.0 - Chronic obstructive pulmonary disease with (acute) lower respiratory infection Annotation/Comment:: Note history of mild COPD and pulmonary fibrosis by previous chest x-rays with probable bilateral aspiration pneumonia at this time. Note significant lactic acid elevation as above, however he stated normalized after IV antibiotics were given and patient was loaded with an liter of lactated Ringer's by IV bolus shortly after admission. The patient has remained afebrile during this hospitalization with only mild leukocytosis on admission, which did resolve on 01/09. Attempt to obtain sputum culture. Blood cultures were not obtained secondary to initial suspicions of possible CHF rather than pneumonia with the patient being an extremely difficult blood draw. No direct clinical evidence of sepsis with IV Rocephin and IV Flagyl initiated in the emergency room secondary to significant lactic acid elevation. Initiated standard sepsis protocol on admission as above with no hypotension or other complications during this hospitalization. Patient was admitted to inpatient care with continuation of antibiotic therapy as above. No nebulizer treatments for now secondary to current COVID-19 pandemia, although the patient did have a negative COVID-19 Evaluation in the senior living last week. No D-dimer elevation, etc. (3) Pneumonia SNOMED Code(s): 576133935 Code(s): J18.9 - PNEUMONIA, UNSPECIFIED ORGANISM Status: Acute Priority: High Current Visit: Yes Onset Date: ~01/09/20 Qualifiers: Pneumonia type: aspiration pneumonia Aspiration pneumonia type: unspecified Laterality: bilateral Lung location: unspecified part of lung Qualified Code(s): J69.0 - Pneumonitis due to inhalation of food and vomit Annotation/Comment:: As above (4) Lactic acid increased SNOMED Code(s): 40343231 Code(s): E87.2 - ACIDOSIS Status: Acute Priority: High Current Visit: Yes Onset Date: 01/09/20 Annotation/Comment:: As above. Repeat lactic acid level as per standard sepsis protocol was normal as above. Note IV bolus of lactated Ringer's was delayed initially secondary to initial suspicion of possible CHF. (5) Hyperlipidemia SNOMED Code(s): 77575490 Code(s): E78.5 - HYPERLIPIDEMIA, UNSPECIFIED Status: Chronic Priority: Medium Current Visit: Yes Qualifiers: Hyperlipidemia type: mixed hyperlipidemia Qualified Code(s): E78.2 - Mixed hyperlipidemia Annotation/Comment:: Currently under therapy. Lipid panel on 01/10/20 did show some persistent dyslipidemia including hypertriglyceridemia. Glycosylated hemoglobin 5.8% on 01/09 Observe for now with no further change in current medical therapy. (6) Hyperuricemia SNOMED Code(s): 36131722 Code(s): E79.0 - HYPERURICEMIA W/O SIGNS OF INFLAM ARTHRIT AND TOPHACEOUS DIS Status: Acute Priority: Medium Current Visit: Yes Onset Date: 01/09/20 Annotation/Comment:: Observe for now with no gout-type symptoms. (7) Incomplete right bundle branch block SNOMED Code(s): 726877902 Code(s): I45.10 - UNSPECIFIED RIGHT BUNDLE-BRANCH BLOCK Status: Chronic Priority: Medium Current Visit: Yes Annotation/Comment:: No chest pain or anginal type symptoms with patient being a somewhat poor historian. EKG initially showed stable possible inferior wall cardiac ischemia with mild change in troponin, although still normal. Repeat cardiac enzymes on 01/08 showed troponin I elevation with subcutaneous Lovenox therapy initiated. Repeat EKG on 01/09 showed resolution of previous possible inferior ischemia with troponin I normal in the a.m. on 01/09. BNP was normal on admission and during this hospitalization despite initial suspicion of possible concomitant CHF with radiological report of chest x-ray confirming possible borderline concomitant CHF. No diuretics at this time. Continue to observe closely. (8) Quadriplegia SNOMED Code(s): 71121765 Code(s): G82.50 - QUADRIPLEGIA, UNSPECIFIED Status: Chronic Priority: Medium Current Visit: Yes Annotation/Comment:: Stable neurological exam and stable neurological deficits by history. (9) Cardiac murmur SNOMED Code(s): 30593609 Code(s): R01.1 - CARDIAC MURMUR, UNSPECIFIED Status: Acute Priority: Medium Current Visit: Yes Onset Date: 01/09/20 Annotation/Comment:: Observe for now. Mild Aortic valve stenosis and mitral valve insufficiency by clinical exam. (10) Shortened [place] interval SNOMED Code(s): 93965218 Code(s): R94.31 - ABNORMAL ELECTROCARDIOGRAM [ECG] [EKG] Status: Acute Priority: Medium Current Visit: Yes Onset Date: 01/09/20 Annotation/Comment:: Observe for now. Note initial sinus tachycardia. Excellent response to low-dose IV Lopressor in the emergency room. No further medications for now. (11) Hypoalbuminemia SNOMED Code(s): 157079516 Code(s): E88.09 - OTH DISORDERS OF PLASMA-PROTEIN METABOLISM, NEC Status: Acute Priority: Medium Current Visit: Yes Onset Date: 01/10/20 Annotation/Comment:: Albumin level is normal on admission. Observe for now. (12) Anemia SNOMED Code(s): 411527266 Code(s): D64.9 - ANEMIA, UNSPECIFIED Status: Acute Priority: Medium Current Visit: Yes Onset Date: 01/10/20 Qualifiers: Anemia type: unspecified type Qualified Code(s): D64.9 - Anemia, unspecified Annotation/Comment:: Borderline anemia on 01/09 with no evidence of acute GI bleed with normal hemoglobin on admission. Observe for now. - Problem List Review Problem List Initiated/Reviewed/Updated: Yes - My Orders Last 24 Hours: My Active Orders 01/09/20 Breakfast Nothing per Oral Now Diet [DIET] 01/09/20 12:05 Cardiac Monitoring [RC] Q2HR Up With Assistance [RC] PFP Chest 1V Frontal [CR] Stat Sodium Chloride 0.9% [Saline Flush] 10 ml FLUSH ASDIRECTED PRN Peripheral IV Insertion Adult [OM.PC] Stat Resuscitation Status Stat 01/09/20 12:35 CARBAMAZEPINE [REF] Stat 01/09/20 15:29 Antiembolic Devices [RC] 08,20 Communication Order [RC] 08,20 Communication Order [RC] 08,20 Height and Weight [RC] DAILY Intake and Output Strict [RC] Oxygen Therapy [RC] 2300 Pulse Oximetry [RC] .PRN Vital Signs [RC] Q4HR CULTURE MRSA SURVEY [] Routine OCCULT BLOOD DIAGNOSTIC [OP] Routine Temazepam [Restoril] 15 mg PO BEDTIME PRN DVT/VTE Prophylaxis Reflex [OM.PC] Routine GM Immunization Reflex [OM.PC] Click To Edit 01/09/20 15:30 Sodium Chloride 0.9% [Saline Flush] 10 ml FLUSH Q12H 01/09/20 16:00 Acetaminophen [Tylenol] 650 mg PO Q4H PRN 01/09/20 17:38 MRSA BY PCR [MREF] Routine 01/09/20 18:00 Chlorhexidine Gluconate [Chlorhexidine Gluconate 0.12% Rinse] 15 ml MM BID Dextromethorphan/guaiFENesin [Mucinex DM ER 600-30 MG] 1 tab PO BID Docusate Sodium/Sennosides [Senna Plus] 1 tab PO BID carBAMazepine [TEGretol Tab] 400 mg PO BID 01/09/20 19:00 diazePAM [Valium] 2.5 mg IVPUSH Q6H PRN 01/09/20 20:00 Enoxaparin [Lovenox] 80 mg SUBCUT BEDTIME Simvastatin [Zocor] 40 mg PO BEDTIME 01/09/20 22:00 metroNIDAZOLE/Normal Saline [Flagyl 500 MG in NS 100 ML] 500 mg Premix Bag 1 bag IV Q8H 01/10/20 01:00 cefTRIAXone [Rocephin] 1 gm Sodium Chloride 0.9% [Normal Saline] 100 ml IV Q12H 01/10/20 05:11 EKG Documentation Completion [RC] ASDIRECTED CK W CKMB [CHEM] Routine COMPREHENSIVE METABOLIC PN,CMP [CHEM] Routine LACTATE SEPSIS W/ REFLEX [CHEM] Routine PRO B-TYPE NATRIUR PEPT,BNPPRO [CHEM] Routine TROPONIN I [CHEM] Routine EKG 12 Lead [EK] Routine 01/10/20 08:00 Folic Acid 0.5 mg PO DAILY Multivitamins [Tab-A-Rosalva] 1 tab PO DAILY Psyllium Husk/Aspartame [Metamucil Sugar Free] 1 pkt PO DAILY Trospium [Sanctura] 20 mg PO BID 01/11/20 08:00 polyethylene glycoL 3350 [MiraLAX] 17 gm PO Q48H 01/12/20 08:00 bisacodyL [Dulcolax] 10 mg RECTAL Q72H - Assessment Assessment:: As above - Plan Plan:: As above. Extensive precautions were given to the patient and his family, who are in agreement with the treatment plan. The patient will require about 2-3 days of inpatient/acute care secondary to multiple health problems as above.
[2020-01-10] MEDS: Dextromethorphan/guaiFENesin 600-30 MG Tab.ER PO SCH ×2 (08:27→17:25)
[2020-01-10] MEDS: Chlorhexidine Gluconate 0.12% Oral Rinse 118 ML Bottle MM SCH ×2 (08:29→17:25)
[2020-01-10] MEDS: Multivitamin Tab PO SCH (08:29)
[2020-01-10 08:38] LABS: CHLORIDE,CL 110 mmol/L (98-107); SODIUM,NA 147 mmol/L (136-145)
[2020-01-10 09:04] LABS: HEMOGLOBIN A1C 5.8 % (4.3-5.7)
[2020-01-10] MEDS: Simvastatin 20 MG Tab PO SCH (19:43)
[2020-01-10] MEDS: Enoxaparin 80 MG/0.8 ML Syringe SUBCUT SCH (19:44)
[2020-01-10] MEDS: Temazepam 15 MG Cap PO PRN (22:58)
[2020-01-11] MEDS: cefTRIAXone 1 GM in Sodium Chloride 0.9% 100 ML IV SCH ×2
[2020-01-11] MEDS: Sodium Chloride 0.9% 10 ML Syringe FLUSH PRN (05:07)
[2020-01-11] MEDS: metroNIDAZOLE/Normal Saline 500 MG in Premix Bag 1 BAG IV SCH (05:07)
[2020-01-11] MEDS ORDERED: Polyethylene Glycol 3350 Powder 17 GM Packet PO SCH (08:00)
[2020-01-11] MEDS: Psyllium Husk Powder Sugar Free 5.85 GM Packet PO SCH (08:07)
[2020-01-11] MEDS: Folic Acid 1 MG Tab PO SCH (08:08)
[2020-01-11] MEDS: Multivitamin Tab PO SCH (08:08)
[2020-01-11] MEDS: Dextromethorphan/guaiFENesin 600-30 MG Tab.ER PO SCH (08:08)
[2020-01-11] MEDS: Trospium 20 MG Tab PO SCH (08:10)
[2020-01-11] MEDS: carBAMazepine 200 MG Tab PO SCH (08:10)
[2020-01-11] MEDS: Chlorhexidine Gluconate 0.12% Oral Rinse 118 ML Bottle MM SCH (08:11)
--- NOTE | 2020-01-11 08:52 | PCM.DCSUM1 ---
Discharge Summary - Hospital Course HPI Initial Comments: See emergency room note/admission H&P Brief History: See emergency room note/admission H&P Diagnosis: Stroke: No Modified Robeson Scale: Mod.Sev.Disability ;Unable to Walk/Attend Bodily Needs W/O Assistance (Stable baseline) Modified Robeson Scale Score: 4 - Discharge Data Discharge Date: 01/11/20 Discharge Disposition: DC/Tfer to SNF 03 Condition: Good - Referral to Home Health Primary Care Physician: Vero Gonzalez NP - Discharge Diagnosis/Problem(s) (1) Seizure disorder SNOMED Code(s): 435405526 ICD Code: G40.909 - EPILEPSY, UNSP, NOT INTRACTABLE, WITHOUT STATUS EPILEPTICUS Status: Chronic Priority: High Current Visit: Yes Onset Date: 01/09/20 Problem Details: No return seizure activity during this hospitalization. Note the patient had previously not had a seizure for quite some time with returned grand mal seizures 2 prior to initial evaluation in our emergency room. Tegretol levels were drawn in the emergency room with results still pending. The patient was given 2.5 mg of diazepam IV in the emergency room for patient discomfort and as seizure prophylaxis with no further doses needed during this hospitalization. Seizure possibly elicited secondary to current pneumonia and hypoxia. Observe for now with no further adjustment of his current Tegretol etc. medications at this time. Further IV diazepam and/or adjustment of his medical therapy depending on his clinical course. (2) COPD (chronic obstructive pulmonary disease) SNOMED Code(s): 46823455 ICD Code: J44.9 - CHRONIC OBSTRUCTIVE PULMONARY DISEASE, UNSPECIFIED Status: Chronic Priority: High Current Visit: Yes Onset Date: ~01/09/20 Problem Details: Chest x-ray prior to discharge now normal with no evidence of pneumonia or CHF. Patient's O2 saturations are excellent on room air at this time. Note history of mild COPD and pulmonary fibrosis by previous chest x-rays with probable bilateral aspiration pneumonia at this time. Note significant lactic acid elevation on admission, however lactic acid level immediately normalized after IV antibiotics were given and patient was loaded with an liter of lactated Ringer's by IV bolus shortly after admission. The patient has remained afebrile during this hospitalization with only mild leukocytosis on admission, which did resolve on 01/09. Attempt to obtain sputum culture was unsuccessful. Blood cultures were not obtained secondary to initial suspicions of possible CHF rather than pneumonia with the patient being an extremely difficult blood draw and IV antibiotics already initiated as above. No direct clinical evidence of sepsis with IV Rocephin and IV Flagyl initiated in the emergency room secondary to significant lactic acid elevation. Initiated standard sepsis protocol on admission as above with no hypotension or other complications during this hospitalization. Patient was admitted to inpatient care with continuation of antibiotic therapy throughout this hospitalization as above. No nebulizer treatments for now secondary to current COVID-19 pandemic, although the patient did have a negative COVID-19 Evaluation in the [facility] last week. No D-dimer elevation, etc.. Per request from the [facility] COVID- 19 specimens were re-collected on 01/09 and 01/10 with results still pending. The [facility] did approve readmission of the patient to their facility despite pending results as above. Qualifiers: COPD type: COPD with acute lower respiratory infection Qualified Code(s): J44.0 - Chronic obstructive pulmonary disease with (acute) lower respiratory infection (3) Pneumonia SNOMED Code(s): 353364778 ICD Code: J18.9 - PNEUMONIA, UNSPECIFIED ORGANISM Status: Acute Priority: High Current Visit: Yes Onset Date: ~01/09/20 Problem Details: As above. Continue Augmentin and Flagyl therapy orally for an additional week with close follow-up by regular provider as per discharge instructions. Qualifiers: Pneumonia type: aspiration pneumonia Aspiration pneumonia type: unspecified Laterality: bilateral Lung location: unspecified part of lung Qualified Code(s): J69.0 - Pneumonitis due to inhalation of food and vomit (4) Lactic acid increased SNOMED Code(s): 24492804 ICD Code: E87.2 - ACIDOSIS Status: Acute Priority: High Current Visit: Yes Onset Date: 01/09/20 Problem Details: As above. Repeat lactic acid level as per standard sepsis protocol was normal as above. Note IV bolus of lactated Ringer's was delayed initially secondary to initial suspicion of possible CHF. (5) Hyperlipidemia SNOMED Code(s): 15126720 ICD Code: E78.5 - HYPERLIPIDEMIA, UNSPECIFIED Status: Chronic Priority: Medium Current Visit: Yes Problem Details: Currently under therapy. Lipid panel on 01/10/20 did show some persistent dyslipidemia including hypertriglyceridemia. Glycosylated hemoglobin 5.8% on 01/09. Observe for now with no further change in current medical therapy. Qualifiers: Hyperlipidemia type: mixed hyperlipidemia Qualified Code(s): E78.2 - Mixed hyperlipidemia (6) Hyperuricemia SNOMED Code(s): 23463007 ICD Code: E79.0 - HYPERURICEMIA W/O SIGNS OF INFLAM ARTHRIT AND TOPHACEOUS DIS Status: Acute Priority: Medium Current Visit: Yes Onset Date: 01/09/20 Problem Details: Observe for now with no gout-type symptoms. (7) Incomplete right bundle branch block SNOMED Code(s): 221829432 ICD Code: I45.10 - UNSPECIFIED RIGHT BUNDLE-BRANCH BLOCK Status: Chronic Priority: Medium Current Visit: Yes Problem Details: No chest pain or anginal type symptoms with patient being a somewhat poor historian. EKG initially showed stable possible inferior wall cardiac ischemia with mild change in troponin, although still normal. Repeat cardiac enzymes on 01/08 showed troponin I elevation with subcutaneous Lovenox therapy initiated. Repeat EKG on 01/09 showed resolution of previous possible inferior ischemia with troponin I normal in the a.m. on 01/09. BNP was normal on admission and during this hospitalization despite initial suspicion of possible concomitant CHF with radiological report of chest x-ray confirming possible borderline concomitant CHF. No diuretics at this time. Continue to observe closely by regular provider. Consider dobutamine Cardiolite stress test on an outpatient basis versus medical management secondary to patient's baseline poor neurological status. (8) Quadriplegia SNOMED Code(s): 22419511 ICD Code: G82.50 - QUADRIPLEGIA, UNSPECIFIED Status: Chronic Priority: Medium Current Visit: Yes Problem Details: Stable neurological exam and sta ble neurological deficits by history. (9) Cardiac murmur SNOMED Code(s): 86045640 ICD Code: R01.1 - CARDIAC MURMUR, UNSPECIFIED Status: Acute Priority: Medium Current Visit: Yes Onset Date: 01/09/20 Problem Details: Observe for now. Mild Aortic valve stenosis and mitral valve insufficiency by clinical exam on admission with only borderline findings at discharge. Consider echocardiogram depending on his clinical course, however note neurological status as above. Patient did require one low-dose IV Lopressor in the emergency room secondary to his initial tachycardia with no further beta justin therapy required during this hospitalization. (10) Shortened RI interval SNOMED Code(s): 15679870 ICD Code: R94.31 - ABNORMAL ELECTROCARDIOGRAM [ECG] [EKG] Status: Acute Priority: Medium Current Visit: Yes Onset Date: 01/09/20 Problem Details: Observe for now. Note initial sinus tachycardia in the emergency room as above. Excellent response to low-dose IV Lopressor in the emergency room. Blood pressures were normal throughout this hospitalization with the exception of one blood pressure yesterday of 180/86 possibly secondary to patient's agitation. No further medications for now. (11) Hypoalbuminemia SNOMED Code(s): 664335684 ICD Code: E88.09 - OTH DISORDERS OF PLASMA-PROTEIN METABOLISM, NEC Status: Acute Priority: Medium Current Visit: Yes Onset Date: 01/10/20 Problem Details: Albumin level was normal on admission. Observe for now. (12) Anemia SNOMED Code(s): 753989864 ICD Code: D64.9 - ANEMIA, UNSPECIFIED Status: Acute Priority: Medium Current Visit: Yes Onset Date: 01/10/20 Problem Details: Borderline anemia on 01/09 with no evidence of acute GI bleed with normal hemoglobin on admission. Observe for now. Qualifiers: Anemia type: unspecified type Qualified Code(s): D64.9 - Anemia, unspecified - Patient Summary/Data Operative Procedure(s) Performed: None Complications: None Consults: None Labs Pending at D/C: 1. COVID-19 specimens 2 as above 2. Tegretol level Recommended Follow-up Testing/Procedures: As per discharge instructions Planned Operative Procedure(s) after DC: None Hospital Course: Patient was admitted to inpatient/acute care with negative workup for acute MT as above, although the second troponin I level was elevated subsequent normalization after subcutaneous Lovenox therapy was initiated. Variable evidence of possible inferolateral wall cardiac ischemia by EKG, however no anginal complaints either prior to or during this entire hospitalization. Further cardiac workup may need to be considered as above. Patient responded extremely well to IV Rocephin and IV Flagyl therapy for his probable aspiration pneumonia. No further seizure activity during this entire hospitalization with stable neurological status and normal baseline at discharge. - Patient Instructions Diet: Heart Healthy Diet Diet, Other: Aspiration precautions Activity: As Tolerated Driving: Do Not Drive Showering/Bathing: May Shower (With assist) Notify Provider of: Fever, Increased Pain, Nausea and/or Vomiting Other/Special Instructions: 1. Update regular provider in one week concerning patient's status and results of this hospitalization. 2. Recommend that regular provider discuss with the family possibility of further cardiac workup, including a possible dobutamine Cardiolite stress test and/or echocardiogram, depending on his clinical status in one week. Secondary to his baseline neurological status further medical management, observation, etc. may be warranted, however. 3. Further x-rays, blood work, etc. per instructions from his regular provider depending on his clinical course. 4. Continue previous standard orders as ordered by his regular provider prior to admission to this facility - Discharge Plan *PRESCRIPTION DRUG MONITORING PROGRAM REVIEWED*: Not Applicable *COPY OF PRESCRIPTION DRUG MONITORING REPORT IN PATIENT ARNOLDO: Not Applicable Prescriptions/Med Rec: Amoxicillin/Potassium Clav [Augmentin 875-125 Tablet] 1 each PO BIDMEALS #14 tablet metroNIDAZOLE [Flagyl] 500 mg PO TID #21 tablet Dextromethorphan/guaiFENesin [Mucinex DM ER 600-30 MG] 1 tab PO BID #14 tab.er Home Medications: Home Meds Chlorhexidine Gluconate [Peridex] 15 ml MM BID 02/19/18 [History] Folic Acid 400 mcg PO DAILY 02/19/18 [History] Multivit with Calcium,Iron,Min [Essential Daily] 1 tab PO DAILY 02/19/18 [History] Sennosides/Docusate Sodium [Senna Plus Tablet] 1 tab PO BID 02/19/18 [History] Simvastatin [Zocor] 40 mg PO BEDTIME 02/19/18 [History] Tolterodine Tartrate [Detrol LA] 4 mg PO DAILY 02/19/18 [History] bisacodyL [Dulcolax] 10 mg RC Q72H 02/19/18 [History] carBAMazepine [Tegretol] 400 mg PO BID 02/19/18 [History] polyethylene glycoL 3350 [MiraLAX] 17 gm PO Q48H 02/19/18 [History] Acetaminophen [Tylenol] 650 mg PO Q4H PRN 01/09/20 [History] Psyllium Husk [Metamucil] 0.4 gm PO TID 01/09/20 [History] Amoxicillin/Potassium Clav [Augmentin 875-125 Tablet] 1 each PO BIDMEALS #14 tablet 01/11/20 [Rx] Dextromethorphan/guaiFENesin [Mucinex DM ER 600-30 MG] 1 tab PO BID #14 tab.er 01/11/20 [Rx] metroNIDAZOLE [Flagyl] 500 mg PO TID #21 tablet 01/11/20 [Rx] Oxygen Therapy Mode: Room Air Forms: ED Department Discharge Referrals: Vero Gonzalez, [employer] [Primary Care Provider] - - Discharge Summary/Plan Comment DC Time >30 min.: Yes (Coordination of care ) Discharge Summary/Plan Comment: As above. Extensive precautions were given to the [facility] staff, who is in agreement with the treatment plan. See Patient Instructions for further treatment and plan. - General Info Date of Service: 01/11/20 Admission Dx/Problem (Free Text: 1. Seizure disorder 2. Pneumonia 3. COPD Subjective Update: Patient is a poor historian secondary to his baseline mental deficits Functional Status: Reports: Pain Controlled, Tolerating Diet, Urinating. Denies: Ambulating (Quadriplegia), New Symptoms, Incentive Spirometry (Unable to perform) Numeric/FACES Score: 0 - Review of Systems General: Reports: Weakness (Stable quadriplegia). Denies: Fever, Fatigue, Malaise, Chills, Night Sweats, Appetite (Good) HEENT: Reports: No Symptoms Pulmonary: Reports: No Symptoms. Denies: Shortness of Breath, Cough, Sputum, Wheezing Cardiovascular: Reports: No Symptoms Gastrointestinal: Reports: No Symptoms Genitourinary: Reports: No Symptoms Musculoskeletal: Reports: No Symptoms Skin: Reports: No Symptoms. Denies: Diaphoresis, Bruising Neurological: Reports: Pre-Existing Deficit (Stable), Difficulty Walking (Stable), Weakness (Stable). Denies: Confusion (Stable baseline mental status), Seizure Psychiatric: Reports: Confusion (As above). Denies: Agitation, Cravings, Hallucinations - Patient Data Vitals - Most Recent: Last Vital Signs Temp 36.8 C 01/11/20 06:00 Pulse 73 01/11/20 06:00 Resp 18 01/11/20 06:00 BP 134/71 01/11/20 06:00 Pulse Ox 96 01/11/20 06:00 Vital Signs - 24 hr 01/10/20 01/10/20 01/10/20 12:00 18:00 23:37 Temperature [ 36.8 C 36.7 C 37.2 C Temporal] Pulse, 77 95 88 Peripheral [ Right Pulse Oximetry] Respiratory 18 18 18 Rate Blood Pressure 128/63 180/86 H 149/89 H [Right Upper Arm] O2 Sat by Pulse 95 97 Oximetry 01/11/20 06:00 Temperature [ 36.8 C Temporal] Pulse, 73 Peripheral [ Right Pulse Oximetry] Respiratory 18 Rate Blood Pressure 134/71 [Right Upper Arm] O2 Sat by Pulse 96 Oximetry Weight - Most Recent: 77.337 kg I&O - Last 24 hours: Intake & Output 01/10/20 01/11/20 01/11/20 22:59 06:59 14:59 Intake Total 440 400 600 Balance 440 400 600 Imaging Impressions - Last 24 hrs: boom man showed stable heart rate in the 80s90s with no ectopy or arrhythmia. Chest x-ray, portable, report on 01/11/20 showed no acute findings with resolution of previous pneumonia and borderline CHF. Chest x-ray, portable, on 01/09/20 showed moderate cardiomegaly with moderate bilateral diffuse pulmonary infiltrates consistent with possible pneumonia with additional possible centralized CHF component. No pneumothorax, etc. Lab Results - Last 24 hrs: Laboratory Results - last 24 hr 01/10/20 01/10/20 01/10/20 Range/Units 07:22 07:22 07:22 Hemoglobin A1c (4.3-5.7) % Lactic Acid 1.8 (0.4-2.0) mmol/L NT-Pro-B Natriuret Pep 101 (0-125) pg/mL Triglycerides 233 H (30-150) mg/dL Cholesterol 147 (100-200) mg/dL LDL Cholesterol, Calc 57 (0-100) mg/dL HDL Cholesterol 43 (40-60) mg/dL 01/10/20 Range/Units 07:22 Hemoglobin A1c 5.8 H (4.3-5.7) % Lactic Acid (0.4-2.0) mmol/L NT-Pro-B Natriuret Pep (0-125) pg/mL Triglycerides (30-150) mg/dL Cholesterol (100-200) mg/dL LDL Cholesterol, Calc (0-100) mg/dL HDL Cholesterol (40-60) mg/dL Laboratory Tests 01/09/20 01/09/20 01/09/20 Range/Units 12:30 12:35 12:35 WBC 11.7 H (4.0-10.2) K/uL RBC 4.30 L (4.33-5.41) M/uL Hgb 13.6 (13.1-16.8) g/dL Hct 42.2 (39.0-49.0) % MCV 98.1 H (84.0-98.0) fL MCH 31.6 (28.2-33.3) pg MCHC 32.2 (31.7-36.0) g/dL RDW 12.9 (11.2-14.1) % Plt Count 273 (150-350) K/uL Neut % (Auto) 77.0 (45.0-80.0) % Lymph % (Auto) 10.6 (10.0-50.0) % Banner % (Auto) 11.8 (2.0-14.0) % Eos % (Auto) 0.4 (0.0-5.0) % Baso % (Auto) 0.2 (0.0-2.0) % Neut # (Auto) 9.03 H (1.40-7.00) K/uL Lymph # (Auto) 1.25 (0.50-3.50) K/uL Banner # (Auto) 1.39 H (0.00-1.00) K/uL Eos # (Auto) 0.05 (0.00-0.50) K/uL Baso # (Auto) 0.02 (0.00-0.20) K/uL PT 9.3 L (9.5-12.0) SEC INR 0.9 APTT 24.4 L (24.5-32.8) SEC D-Dimer, Quantitative 349 (0-400) ng/mL Sodium (136-145) mmol/L Potassium (3.5-5.1) mmol/L Chloride (98-107) mmol/L Carbon Dioxide (21.0-32.0) mmol/L BUN (7-18) mg/dL Creatinine (0.51-1.17) mg/dL Est Cr Clr Drug Dosing mL/min Estimated GFR (MDRD) mL/min Glucose (74-106) mg/dL Hemoglobin A1c (4.3-5.7) % Lactic Acid (0.4-2.0) mmol/L Uric Acid (2.6-7.2) mg/dL Calcium (8.5-10.1) mg/dL Magnesium (1.8-2.4) mg/dL Total Bilirubin (0.2-1.0) mg/dL AST (15-37) U/L ALT (12-78) U/L Alkaline Phosphatase (46-116) IU/L Creatine Kinase (26-308) U/L Creatine Kinase Index (0.0-2.5) % CK-MB (CK-2) (0.00-3.60) ng/mL Troponin I (0.000-0.056) ng/mL NT-Pro-B Natriuret Pep (0-125) pg/mL Total Protein (6.4-8.2) g/dL Albumin (3.4-5.0) g/dL Triglycerides (30-150) mg/dL Cholesterol (100-200) mg/dL LDL Cholesterol, Calc (0-100) mg/dL HDL Cholesterol (40-60) mg/dL TSH, Ultra Sensitive (0.358-3.740) mIU/mL 01/09/20 01/09/20 01/09/20 Range/Units 12:35 12:35 17:35 WBC (4.0-10.2) K/uL RBC (4.33-5.41) M/uL Hgb (13.1-16.8) g/dL Hct (39.0-49.0) % MCV (84.0-98.0) fL MCH (28.2-33.3) pg MCHC (31.7-36.0) g/dL RDW (11.2-14.1) % Plt Count (150-350) K/uL Neut % (Auto) (45.0-80.0) % Lymph % (Auto) (10.0-50.0) % Banner % (Auto) (2.0-14.0) % Eos % (Auto) (0.0-5.0) % Baso % (Auto) (0.0-2.0) % Neut # (Auto) (1.40-7.00) K/uL Lymph # (Auto) (0.50-3.50) K/uL Banner # (Auto) (0.00-1.00) K/uL Eos # (Auto) (0.00-0.50) K/uL Baso # (Auto) (0.00-0.20) K/uL PT (9.5-12.0) SEC INR APTT (24.5-32.8) SEC D-Dimer, Quantitative (0-400) ng/mL Sodium 148 H (136-145) mmol/L Potassium 3.9 (3.5-5.1) mmol/L Chloride 109 H (98-107) mmol/L Carbon Dioxide 26.5 (21.0-32.0) mmol/L BUN 11 (7-18) mg/dL Creatinine 0.72 (0.51-1.17) mg/dL Est Cr Clr Drug Dosing 93.53 mL/min Estimated GFR (MDRD) > 60 mL/min Glucose 118 H (74-106) mg/dL Hemoglobin A1c (4.3-5.7) % Lactic Acid 7.8 H 1.6 (0.4-2.0) mmol/L Uric Acid 9.2 H (2.6-7.2) mg/dL Calcium 9.5 (8.5-10.1) mg/dL Magnesium 2.3 (1.8-2.4) mg/dL Total Bilirubin 0.2 (0.2-1.0) mg/dL AST 15 (15-37) U/L ALT 25 (12-78) U/L Alkaline Phosphatase 127 H (46-116) IU/L Creatine Kinase 286 (26-308) U/L Creatine Kinase Index 0.5 (0.0-2.5) % CK-MB (CK-2) 1.30 (0.00-3.60) ng/mL Troponin I 0.012 (0.000-0.056) ng/mL NT-Pro-B Natriuret Pep 37 (0-125) pg/mL Total Protein 7.8 (6.4-8.2) g/dL Albumin 3.6 (3.4-5.0) g/dL Triglycerides (30-150) mg/dL Cholesterol (100-200) mg/dL LDL Cholesterol, Calc (0-100) mg/dL HDL Cholesterol (40-60) mg/dL TSH, Ultra Sensitive 2.958 (0.358-3.740) mIU/mL 01/09/20 01/10/20 01/10/20 Range/Units 17:35 07:22 07:22 WBC 8.4 (4.0-10.2) K/uL RBC 4.09 L (4.33-5.41) M/uL Hgb 13.0 L (13.1-16.8) g/dL Hct 41.0 (39.0-49.0) % MCV 100.2 H (84.0-98.0) fL MCH 31.8 (28.2-33.3) pg MCHC 31.7 (31.7-36.0) g/dL RDW 13.0 (11.2-14.1) % Plt Count 261 (150-350) K/uL Neut % (Auto) 57.3 (45.0-80.0) % Lymph % (Auto) 30.0 (10.0-50.0) % Banner % (Auto) 11.2 (2.0-14.0) % Eos % (Auto) 1.3 (0.0-5.0) % Baso % (Auto) 0.2 (0.0-2.0) % Neut # (Auto) 4.81 (1.40-7.00) K/uL Lymph # (Auto) 2.52 (0.50-3.50) K/uL Banner # (Auto) 0.94 (0.00-1.00) K/uL Eos # (Auto) 0.11 (0.00-0.50) K/uL Baso # (Auto) 0.02 (0.00-0.20) K/uL PT (9.5-12.0) SEC INR APTT (24.5-32.8) SEC D-Dimer, Quantitative (0-400) ng/mL Sodium 147 H (136-145) mmol/L Potassium 3.7 (3.5-5.1) mmol/L Chloride 110 H (98-107) mmol/L Carbon Dioxide 29.8 (21.0-32.0) mmol/L BUN 10 (7-18) mg/dL Creatinine 0.64 (0.51-1.17) mg/dL Est Cr Clr Drug Dosing 105.23 mL/min Estimated GFR (MDRD) > 60 mL/min Glucose 109 H (74-106) mg/dL Hemoglobin A1c (4.3-5.7) % Lactic Acid (0.4-2.0) mmol/L Uric Acid (2.6-7.2) mg/dL Calcium 8.6 (8.5-10.1) mg/dL Magnesium (1.8-2.4) mg/dL Total Bilirubin 0.2 (0.2-1.0) mg/dL AST 15 (15-37) U/L ALT 25 (12-78) U/L Alkaline Phosphatase 109 (46-116) IU/L Creatine Kinase 284 211 (26-308) U/L Creatine Kinase Index 0.5 0.4 (0.0-2.5) % CK-MB (CK-2) 1.40 0.90 (0.00-3.60) ng/mL Troponin I 0.069 H* 0.003 (0.000-0.056) ng/mL NT-Pro-B Natriuret Pep 101 (0-125) pg/mL Total Protein 7.0 (6.4-8.2) g/dL Albumin 3.1 L (3.4-5.0) g/dL Triglycerides (30-150) mg/dL Cholesterol (100-200) mg/dL LDL Cholesterol, Calc (0-100) mg/dL HDL Cholesterol (40-60) mg/dL TSH, Ultra Sensitive (0.358-3.740) mIU/mL 01/10/20 01/10/20 01/10/20 Range/Units 07:22 07:22 07:22 WBC (4.0-10.2) K/uL RBC (4.33-5.41) M/uL Hgb (13.1-16.8) g/dL Hct (39.0-49.0) % MCV (84.0-98.0) fL MCH (28.2-33.3) pg MCHC (31.7-36.0) g/dL RDW (11.2-14.1) % Plt Count (150-350) K/uL Neut % (Auto) (45.0-80.0) % Lymph % (Auto) (10.0-50.0) % Banner % (Auto) (2.0-14.0) % Eos % (Auto) (0.0-5.0) % Baso % (Auto) (0.0-2.0) % Neut # (Auto) (1.40-7.00) K/uL Lymph # (Auto) (0.50-3.50) K/uL Banner # (Auto) (0.00-1.00) K/uL Eos # (Auto) (0.00-0.50) K/uL Baso # (Auto) (0.00-0.20) K/uL PT (9.5-12.0) SEC INR APTT (24.5-32.8) SEC D-Dimer, Quantitative (0-400) ng/mL Sodium (136-145) mmol/L Potassium (3.5-5.1) mmol/L Chloride (98-107) mmol/L Carbon Dioxide (21.0-32.0) mmol/L BUN (7-18) mg/dL Creatinine (0.51-1.17) mg/dL Est Cr Clr Drug Dosing mL/min Estimated GFR (MDRD) mL/min Glucose (74-106) mg/dL Hemoglobin A1c 5.8 H (4.3-5.7) % Lactic Acid 1.8 (0.4-2.0) mmol/L Uric Acid (2.6-7.2) mg/dL Calcium (8.5-10.1) mg/dL Magnesium (1.8-2.4) mg/dL Total Bilirubin (0.2-1.0) mg/dL AST (15-37) U/L ALT (12-78) U/L Alkaline Phosphatase (46-116) IU/L Creatine Kinase (26-308) U/L Creatine Kinase Index (0.0-2.5) % CK-MB (CK-2) (0.00-3.60) ng/mL Troponin I (0.000-0.056) ng/mL NT-Pro-B Natriuret Pep (0-125) pg/mL Total Protein (6.4-8.2) g/dL Albumin (3.4-5.0) g/dL Triglycerides 233 H (30-150) mg/dL Cholesterol 147 (100-200) mg/dL LDL Cholesterol, Calc 57 (0-100) mg/dL HDL Cholesterol 43 (40-60) mg/dL TSH, Ultra Sensitive (0.358-3.740) mIU/mL [facility] Results - Last 24 hrs: None. Sputum specimen could not be collected. Med Orders - Current: Current Medications Acetaminophen (Tylenol) 650 mg PO Q4H PRN PRN Reason: Pain/Fever Bisacodyl (Dulcolax) 10 mg RECTAL Q72H [facility] Carbamazepine (Tegretol Tab) 400 mg PO BID [facility] Last Admin: 01/11/20 08:10 Dose: 400 mg Documented by: Chlorhexidine Gluconate (Chlorhexidine Gluconate 0.12% Rinse) 15 ml MM BID [facility] Last Admin: 01/11/20 08:11 Dose: 15 ml Documented by: Diazepam (Valium) 2.5 mg IVPUSH Q6H PRN PRN Reason: Seizures Enoxaparin Sodium (Lovenox) 80 mg SUBCUT BEDTIME [facility] Last Admin: 01/10/20 19:44 Dose: 80 mg Documented by: Folic Acid (Folic Acid) 0.5 mg PO DAILY [facility] Last Admin: 01/11/20 08:08 Dose: 0.5 mg Documented by: Guaifenesin/Dextromethorphan (Mucinex Dm Er 600-30 Mg) 1 tab PO BID [facility] Last Admin: 01/11/20 08:08 Dose: 1 tab Documented by: Ceftriaxone Sodium 1 gm/ (Sodium Chloride) 100 mls @ 200 mls/hr IV Q12H [facility] Last Admin: 01/11/20 00:00 Dose: 200 mls/hr Documented by: Metronidazole 500 mg/ Premix 100 mls @ 100 mls/hr IV Q8H [facility] Last Admin: 01/11/20 05:07 Dose: 100 mls/hr Documented by: Multivitamins/Minerals/Vitamin C (Tab-A-Rosalva) 1 tab PO DAILY [facility] Last Admin: 01/11/20 08:08 Dose: 1 tab Documented by: Polyethylene Glycol (Miralax) 17 gm PO Q48H [facility] Last Admin: 01/11/20 08:05 Dose: 17 gm Documented by: Psyllium Husk (Metamucil Sugar Free) 1 pkt PO DAILY [facility] Last Admin: 01/11/20 08:07 Dose: 1 pkt Documented by: Senna/Docusate Sodium (Senna Plus) 1 tab PO BID [facility] Last Admin: 01/11/20 08:08 Dose: 1 tab Documented by: Simvastatin (Zocor) 40 mg PO BEDTIME [facility] Last Admin: 01/10/20 19:43 Dose: 40 mg Documented by: Sodium Chloride (Saline Flush) 10 ml FLUSH ASDIRECTED PRN PRN Reason: Keep Vein Open Last Admin: 01/11/20 05:07 Dose: 10 ml Documented by: Temazepam (Restoril) 15 mg PO BEDTIME PRN PRN Reason: Insomnia Last Admin: 01/10/20 22:58 Dose: 15 mg Documented by: Trospium (Sanctura) 20 mg PO BID [facility] Last Admin: 01/11/20 08:10 Dose: 20 mg Documented by: Discontinued Medications Acetaminophen (Tylenol) 650 mg PO Q4H PRN PRN Reason: Pain/Fever Diazepam (Valium) 2.5 mg IVPUSH ONETIME ONE Stop: 01/09/20 12:41 Last Admin: 01/09/20 12:45 Dose: 2.5 mg Documented by: Ceftriaxone Sodium 1 gm/ (Sodium Chloride) 100 mls @ 200 mls/hr IV ONETIME ONE Stop: 01/09/20 13:41 Last Admin: 01/09/20 13:36 Dose: 200 mls/hr Documented by: Metronidazole 500 mg/ Premix 100 mls @ 100 mls/hr IV ONETIME ONE Stop: 01/09/20 14:12 Last Admin: 01/09/20 14:32 Dose: 100 mls/hr Documented by: Metoprolol Tartrate (Lopressor) 2.5 mg IVPUSH ONETIME ONE Stop: 01/09/20 12:06 Last Admin: 01/09/20 12:36 Dose: 2.5 mg Documented by: Non-Formulary Medication (Psyllium Husk [Metamucil]) 0.4 gm PO TID [facility] Sodium Chloride (Saline Flush) 10 ml FLUSH Q12H [facility] Last Admin: 01/10/20 02:31 Dose: Not Given Documented by: - Exam Quality Assessment: Reports: DVT Prophylaxis (Lovenox). Denies: Supplemental Oxygen, Central Line/PICC, Urine Catheter, Skin Breakdown General: Reports: Alert, Cooperative, No Acute Distress. Denies: Oriented (Baseline mental status deficits) HEENT: Reports: Pupils Equal, Pupils Reactive, EOMI, Mucous Membr. Moist/[place]. Denies: Scleral Icterus Neck: Reports: Supple, Trachea Midline, No JVD, No Thyromegaly, +2 Carotid Pulse wo Bruit. Denies: Lymphadenopathy Lungs: Reports: Clear to Auscultation, Normal Respiratory Effort. Denies: Rub, Wheezing Cardiovascular: Reports: Regular Rate, Regular Rhythm, Murmurs (Improved borderline 1/6 SHENG of the aortic and mitral valves). Denies: Gallops, Rubs GI/Abdominal Exam: Normal Bowel Sounds, Soft, Non-Tender, No Organomegaly, No Distention, No Abnormal Bruit, No Mass. No: Guarding (Male) Exam: Deferred Rectal (Males) Exam: Deferred Back Exam: Reports: Normal Inspection, Full Range of Motion. Denies: CVA Tenderness (L), CVA Tenderness (R), Muscle Spasm Extremities: Normal Inspection, Non-Tender, No Pedal Edema, Normal Capillary Refill. No: Normal Range of Motion (Quadriplegia) Skin: Reports: Warm, Dry, Intact. Denies: Ecchymosis Neurological: Reports: No New Focal Deficit, Other (Stable mental status and quadriplegia) EKG INTERPRETATION EKG Date: 01/11/20 Time: 07:34 Rhythm: NSR Rate (Beats/Min): 72 [place]: Normal (Neutral) P-Wave: Present (Mild diffuse biphasic P waves with possible pulmonary hypertension by EKG) QRS: RBBB (0.11 seconds representing an incomplete right bundle branch block) ST-T: Normal (Returned T-wave inversion in leads V1 and [address] changes in lead V3) QT: Normal RI/PQ Interval: 0.14 seconds representing a stable short RI interval with no delta waves noted Comparison: Change From Previous EKG (As above since 01/10/20) EKG Interpretation Comments: 1. No acute ischemic changes 2. Incomplete right bundle branch block 3. Short RI interval
[2020-01-12] MEDS ORDERED: Bisacodyl 10 MG Supp RECTAL SCH (08:00)
== END 2020-01-11 13:58 | DRG 100 ==
LOC: LL.ED 11:58 → LL.MS 14:20 → UNDOADMIN 14:20 → LL.MS 15:18
PROVIDERS: ADMIT Nurse Practitioner Family; ATTEND Nurse Practitioner Family
DX: G40.909 Epilepsy, unspecified, not intractable, without status epilepticus (principal); J69.0 Pneumonitis due to inhalation of food and vomit; G82.50 Quadriplegia, unspecified; J44.0 Chronic obstructive pulmonary disease with (acute) lower respiratory infection; J44.9 Chronic obstructive pulmonary disease, unspecified; E87.2 Acidosis; Z20.828 Contact with and (suspected) exposure to other viral communicable diseases; J84.10 Pulmonary fibrosis, unspecified; Z87.01 Personal history of pneumonia (recurrent); E78.2 Mixed hyperlipidemia; R13.10 Dysphagia, unspecified; F32.9 Major depressive disorder, single episode, unspecified; R33.9 Retention of urine, unspecified; E79.0 Hyperuricemia without signs of inflammatory arthritis and tophaceous disease; I45.10 Unspecified right bundle-branch block; R01.1 Cardiac murmur, unspecified; E88.09 Other disorders of plasma-protein metabolism, not elsewhere classified; D64.9 Anemia, unspecified; E78.00 Pure hypercholesterolemia, unspecified; K59.09 Other constipation; M19.90 Unspecified osteoarthritis, unspecified site; Z79.899 Other long term (current) drug therapy
CPT/HCPCS: 36415; 71045; 80053; 80156; 82550; 82553; 83605; 83735; 83880; 84443; 84484; 84550; 85025; 85379; 85610; 85730; 93005; 96365; 96367; 96375; 99285; J0696; J3360; J3490 ×2; J7050; 80061; 83036; 87641; A9270-GY; J1650; U0002